=== PATIENT | female | born 1955 | race Caucasian/White ===

== ENCOUNTER 2017-04-06 12:42 | Emergency (ER) | payer BC, SELFPAY ==
[2017-04-06 14:20] VITALS: BP 132/87; PULSE 90; RESP 18; TEMP 37.2; O2SAT 100
[2017-04-06 14:43] LABS: UTC Influenza A Antigen Positive (Negative); UTC Influenza B Antigen Negative (Negative)
--- NOTE | 2017-04-06 14:47 | HMH.EDUTC ---
[facility] [place] Disposition Clinical Impression: Influenza Disposition: Home, Self-Care Condition on Discharge: Good Instructions: Influenza Additional Instructions: * Monitor Temp. Tylenol and/or Ibuprofen as needed. ER if fever is no less than 101 despite alternating Tylenol and Ibuprofen * Encourage fluids, water, Gatorade, powerade, pedialyte if infant/toddler/or child * Warm salt water gargles for throat irritation *Warm fluids *Sore throat lozenges *Sleep elevated *humidifier or vaporizer Lots of rest Increase fluids, water, Gatorade, powerade Follow up IMMEDIATELY for new or worsening of symptoms OR no noticeable improvement over the next 48-72 hours. 911 immediately for any life threatening symptoms such as chest pain or difficulty breathing Prescriptions: Dextromethorphan Polistirex [Delsym] 10 ml PO Q12RT PRN #200 [email or web address] PRN Reason: Cough Oseltamivir Phosphate [Tamiflu 75mg Capsule] 75 mg PO BID #10 capsule Referrals: Dipti Noguera APRN [Primary Care Provider] - Time of Disposition: 14:57 Medical Decision Making Vital Signs: 04/06/17 14:20 Temperature 98.9 F Temperature Source Temporal Artery Scan Pulse Rate [Right] 90 Respiratory Rate 18 Blood Pressure [Right Arm] 132/87 Blood Pressure Mean [Right Arm] 102 Blood Pressure Source [Right Arm] Automatic Cuff Blood Pressure Position [Right Arm] Sitting 02 Sat by Pulse Oximetry 100 Oxygen Delivery Method Room Air - Lab Data Lab Results 04/06/17 14:42: Influenza Type A Ag Positive A, Influenza Type B Ag Negative - Armando Inquiry Pt receiving controlled substance: No Armando was queried for this patient: No [facility] HPI - General Stated complaint: body aches Mode of Arrival: Ambulatory Source of Information: Patient Limitations: No Limitations Description of Symptoms (Recalled from Triage Doc. by RN): COUGH, CONGESTION, NAUSEA TUESDAY HEENT Symptoms (Recalled from RN notes): Yes Resp Symptoms (Recalled from RN notes): No Skin Symptoms (Recalled from RN notes): No MS Symptoms (Recalled from RN notes): No Functional Status (Recalled from RN notes): N - History of Present Illness Provider Complaint: Patient state that she has been having flu like symptoms that has continued to get worse State that her grandson was just diagnosed with flu 2 days ago - Related Data Previous Rx's Medication Instructions Recorded Dextromethorphan Polistirex 10 ml PO Q12RT PRN #200 [email or web address] 04/06/17 [Delsym] Oseltamivir Phosphate [Tamiflu 75 mg PO BID #10 cap 04/06/17 75mg Capsule] Allergies Allergy/AdvReac Type Severity Reaction Status Date / Time Sulfa (Sulfonamide Allergy Unknown Unverified 03/22/17 14:25 Antibiotics) [SULFA (SULFONAMIDE ANTIBIOTICS)] sulfamethizole Allergy Unknown Unverified 03/22/17 14:25 [SULFAMETHIZOLE] - Worker's Comp Is this a Worker's Comp case?: No H History - *Social History Alcohol Intake: never - Psychiatric History Expresses thoughts of harming self/others: None Suicide Plan Description: No Plan - Constitutional Reports chills, Reports fatigue, Reports fever(s) - ENT Reports nasal congestion - Respiratory Reports cough Physical Exam - General General appearance: alert, in no apparent distress - ENT ENT exam: Present: normal exam, normal oropharynx, mucous membranes moist, TM's normal bilaterally, normal external ear exam - Respiratory Respiratory exam: Present: normal lung sounds bilaterally. Absent: respiratory distress - Cardiovascular Cardiovascular exam: Present: regular rate, normal rhythm. Absent: JVD - Neurological Exam Neurological exam: Present: alert, oriented X3 - Psychiatric Psychiatric exam: Present: normal affect, normal mood
--- NOTE | 2017-04-06 14:53 | ED_ITS ---
[facility] [place] Disposition Clinical Impression: Influenza Disposition: Home, Self-Care Condition on Discharge: Good Instructions: Influenza Additional Instructions: * Monitor Temp. Tylenol and/or Ibuprofen as needed. ER if fever is no less than 101 despite alternating Tylenol and Ibuprofen * Encourage fluids, water, Gatorade, powerade, pedialyte if infant/toddler/or child * Warm salt water gargles for throat irritation *Warm fluids *Sore throat lozenges *Sleep elevated *humidifier or vaporizer Lots of rest Increase fluids, water, Gatorade, powerade Follow up IMMEDIATELY for new or worsening of symptoms OR no noticeable improvement over the next 48-72 hours. 911 immediately for any life threatening symptoms such as chest pain or difficulty breathing Prescriptions: Dextromethorphan Polistirex [Delsym] 10 ml PO Q12RT PRN #200 [email or web address] PRN Reason: Cough Oseltamivir Phosphate [Tamiflu 75mg Capsule] 75 mg PO BID #10 capsule Referrals: Dipti Noguera APRN [Primary Care Provider] - Time of Disposition: 14:57 Medical Decision Making Vital Signs: 04/06/17 14:20 Temperature 98.9 F Temperature Source Temporal Artery Scan Pulse Rate [Right] 90 Respiratory Rate 18 Blood Pressure [Right Arm] 132/87 Blood Pressure Mean [Right Arm] 102 Blood Pressure Source [Right Arm] Automatic Cuff Blood Pressure Position [Right Arm] Sitting 02 Sat by Pulse Oximetry 100 Oxygen Delivery Method Room Air - Lab Data Lab Results 04/06/17 14:42: Influenza Type A Ag Positive A, Influenza Type B Ag Negative - Armando Inquiry Pt receiving controlled substance: No Armando was queried for this patient: No [facility] [place] HPI - General Stated complaint: body aches Mode of Arrival: Ambulatory Source of Information: Patient Limitations: No Limitations Description of Symptoms (Recalled from Triage Doc. by RN): COUGH, CONGESTION, NAUSEA TUESDAY HEENT Symptoms (Recalled from RN notes): Yes Resp Symptoms (Recalled from RN notes): No Skin Symptoms (Recalled from RN notes): No MS Symptoms (Recalled from RN notes): No Functional Status (Recalled from RN notes): N - History of Present Illness Provider Complaint: Patient state that she has been having flu like symptoms that has continued to get worse State that her grandson was just diagnosed with flu 2 days ago - Related Data Previous Rx's Medication Instructions Recorded Dextromethorphan Polistirex 10 ml PO Q12RT PRN #200 [email or web address] 04/06/17 [Delsym] Oseltamivir Phosphate [Tamiflu 75 mg PO BID #10 cap 04/06/17 75mg Capsule] Allergies Allergy/AdvReac Type Severity Reaction Status Date / Time Sulfa (Sulfonamide Allergy Unknown Unverified 03/22/17 14:25 Antibiotics) [SULFA (SULFONAMIDE ANTIBIOTICS)] sulfamethizole Allergy Unknown Unverified 03/22/17 14:25 [SULFAMETHIZOLE] - Worker's Comp Is this a Worker's Comp case?: No H History - *Social History Alcohol Intake: never - Psychiatric History Expresses thoughts of harming self/others: None Suicide Plan Description: No Plan - Constitutional Reports chills, Reports fatigue, Reports fever(s) - ENT Reports nasal congestion - Respiratory Reports cough Physical Exam - General General appearance: a
== END 2017-04-06 15:05 | disposition home or self-care (01) ==
PROVIDERS: Emergency Provider Nurse Practitioner; Family Provider Internal Medicine Adolescent Medicine; PCP Nurse Practitioner Family
DX: J10.1 Influenza due to other identified influenza virus with other respiratory manifestations (principal)
CPT/HCPCS: 87276; 87804; 99201

== ENCOUNTER → 2018-01-13 09:30 | Outpatient (CLI) | payer BC, SELFPAY ==
[2018-01-13 09:56] LABS: Basophils % 0.2 % (0.1-2.0); Eosinophils # 0.1 K/mm3 (0.0-0.4); Eosinophils % 1.6 % (0.1-12.0); Hematocrit 41.7 % (37.0-47.0); Hemoglobin 13.6 g/dL (12.2-16.2); Lymphocytes # 1.6 K/mm3 (0.7-4.5); Lymphocytes % 27.6 K/mm3 (10-50); Mean Corpuscular HGB Conc 32.6 g/dL (31.8-35.4); Mean Corpuscular Hemoglobin 30.3 pg (27.0-31.2); Mean Corpuscular Volume 92.9 fl (81-99); Mean Platelet Volume 7.3 fl (7.4-10.4); Monocytes # 0.3 K/mm3 (0.1-1.0); Monocytes % 5.3 % (1.7-9.3); Neutrophils # 3.9 K/mm3 (1.8-7.8); Neutrophils % 65.2 % (37.0-80.0); Platelet Count 293 K/mm3 (142-424); Red Blood Count 4.49 M/mm3 (4.20-5.40); Red Cell Distribution Width 13.6 % (11.5-17.5); White Blood Count 5.9 K/mm3 (4.8-10.8)
[2018-01-13 11:20] LABS: Alanine Aminotransferase 25 U/L (12-78); Albumin Level 3.4 gm/dL (3.4-5.0); Albumin/Globulin Ratio 1.1 (1.1-1.8); Alkaline Phosphatase 72 U/L (46-116); Aspartate Amino Transferase 14 U/L (15-37); Bilirubin,Total 0.5 mg/dL (0.2-1.0); Blood Urea Nitrogen 15 mg/dL (7-18); Calcium 8.7 mg/dL (8.5-10.1); Carbon Dioxide 31 mmol/L (21.0-32.0); Chloride 105 mmol/L (98-107); Chol/HDL Ratio 4.3 (1-3.5); Cholesterol 202 mg/dL (140-200); Creatinine,Serum 0.79 mg/dL (0.55-1.02); Estimated Glomerular Filt Rate 73 ml/min (>60); Free Thyroxine Index 3.3 ug/dL (5.93-13.13); GFR (African American) 89 ML/MIN (>60); Globulin 3.2 gm/dl (1.3-3.2); Glucose 96 mg/dL (74-106); HDL Cholesterol 47 mg/dL (29-89); LDL Cholesterol 135 mg/dL (0-130); Sodium 141 mmol/L (136-145); T4 (Thyroxine) 8.9 ug/dl (4.7-13.3); Total Protein,Serum 6.6 gm/dL (6.4-8.2); Triglycerides 98 mg/dL (30-200); Triiodothryronine (T3) Uptake 37 % (31-39); VLDL Cholesterol 20 mg/dL (0-40)
[2018-01-16 06:15] LABS: Vitamin B12 564 pg/mL (232-1245); Vitamin D 25 Hydroxy 31.4 ng/mL (30.0-100.0)
== END ==
PROVIDERS: PCP Nurse Practitioner Family; Visit Provider Nurse Practitioner Family
DX: I10 Essential (primary) hypertension (principal); E78.5 Hyperlipidemia, unspecified; E55.9 Vitamin D deficiency, unspecified; R53.83 Other fatigue
CPT/HCPCS: 36415; 80053; 80061; 82607; 82652; 84436; 84443; 84479; 85025

== ENCOUNTER → 2018-01-20 09:14 | Outpatient (CLI) | payer BC, SELFPAY ==
--- NOTE | 2018-01-20 09:16 | MM_ITS ---
MM Dig screening mamm BI w/CAD ORDERING PHYSICIAN : Dipti Noguera PATIENT AGE: 62 years GENDER: Female COMPARISON: March 2012 digital mammogram along with November 2008 film screen mammogram INDICATION: ITS.REASON: SCREENING no hormones. No new complaints.. Family history: maternal aunt with breast cancer TECHNIQUE: Standard CC and MLO images were obtained. R2 CAD reviewed. Additional nipple profile cc view bilateral . Added MLO inframammary fold FINDINGS: Low-density breast with moderate generalized fatty replacement. RIGHT BREAST:Stable right breast with no new areas concern. LEFT BREAST: . No new areas of significant concern Small nodular density at the deep lateral left breast is most likely is a tiny intramammary node up to 3 mm size. This is this nodular density present since 2008 but has mildly accentuated on today's slightly higher contrast mammogram study, thus I believe due to technique. When measured no significant change in size since prior study . Would encourage follow-up in one year to confirm stability here and elsewhere. IMPRESSION: ... No new areas of significant concern. Bilateral follow-up in one year recommended and should be encouraged BI-RADS Category: 2 Benign Finding(s) RECOMMENDED FOLLOW-UP: 1YR 1 YEAR FOLLOW-UP (A letter has been sent to the patient regarding results of the study.)
== END ==
PROVIDERS: Family Provider Internal Medicine Adolescent Medicine; PCP Nurse Practitioner Family; Visit Provider Nurse Practitioner Family
DX: Z12.31 Encounter for screening mammogram for malignant neoplasm of breast (principal)
CPT/HCPCS: 77067

== ENCOUNTER → 2018-08-24 15:01 | Outpatient (CLI) | payer OTHER, SELFPAY ==
--- NOTE | 2018-08-24 15:06 | US_ITS ---
US thyroid HISTORY: Follow-up thyroid nodules ITS.REASON: GOITER ORDERING PHYSICIAN: Dipti Noguera APRN PATIENT AGE: 62 years Comparison: None FINDINGS: The right lobe is 4.7 x 1 x 1.2 cm. Multiple nodules are present. Nodule A upper pole: Mixed cystic and solid at 5 mm unchanged. Nodule B: Isoechoic solid-appearing nodule at 1 cm unchanged. Nodule C: Isoechoic nodule with a small area of increased echogenicity centrally. This nodule measures 4 mm not demonstrated on the previous exam Nodule D: Isoechoic nodule at 8 x 4 mm near the isthmus unchanged Nodule E: Cystic nodule at 8 mm in the mid polar region unchanged Nodule F: 6 X 4 mm isoechoic nodule with a polar region unchanged Nodule T: 7 x 5 mm isoechoic nodule in the mid polar region unchanged The left lobe is 4.6 x 1.5 x 2 cm. Nodule A: 16 x 10 mm complex cyst upper pole unchanged Nodule B: 8 x 8 mm cystic lesion mid polar region unchanged. There is a central area of increased echogenicity similar to the previous exam Nodule C: 15 x 7 mm isoechoic nodule lower pole unchanged Nodule D: 9 mm cyst lower pole unchanged IMPRESSION: No change multinodular goiter
== END ==
PROVIDERS: PCP Nurse Practitioner Family; Visit Provider Nurse Practitioner Family
DX: E04.2 Nontoxic multinodular goiter (principal)
CPT/HCPCS: 76536

== ENCOUNTER 2019-04-19 23:59 | Observation (INO) ==
--- NOTE | 2019-04-20 00:22 | Emergency Department Note ---
ED Disposition Clinical Impression: Mandibular abscess, Severe sepsis with acute organ dysfunction, LEANDRA (acute kidney injury), Hypokalemia Disposition: Admitted As Inpatient Condition on Discharge: Good Instructions: DI for Diarrhea and Traveler's Diarrhea -- Adult, DI for Diarrhea and Traveler's Diarrhea -- Child, DI for Nausea -- Adult, DI for Nausea -- Child Referrals: Dipti Noguera APRN [Primary Care Provider] - - Critical Care Critical Care Time: No Attestation: On 04/19/19, the high probability of a clinically significant, sudden or life threatening deterioration of the following system(s) required my full and direct attention, intervention and personal management. The time I documented below is in addition to time spent performing reported procedures but includes the following listed in this critical care notation. Medical Decision Making - Medical Records Medical records reviewed: Yes: I reviewed the patient's medical records. - Armando Inquiry Pt receiving controlled substance: No Vital Signs: 04/20/19 00:07 Temperature 98.0 F Temperature Source Oral Pulse Rate [Right Brachial] 89 Respiratory Rate 19 Blood Pressure [Right Arm] 139/88 Blood Pressure Mean [Right Arm] 105 Blood Pressure Source [Right Arm] Automatic Cuff Blood Pressure Position [Right Arm] Sitting 02 Sat by Pulse Oximetry 100 Oxygen Delivery Method Room Air - Lab Data Lab results reviewed: Yes: I reviewed the patient's lab results. Lab Results 04/20/19 00:15: WBC 17.2 H, RBC 5.25, Hgb 15.9, Hct 48.0 H, MCV 91.5, MCH 30.4, MCHC 33.2, RDW 13.4, Plt Count 349, MPV 8.1, Neut % (Auto) 90.2 H, Lymph % (Auto) 5.6 L, [place] % (Auto) 4.0, Eos % (Auto) 0.1, Baso % (Auto) 0.1, Neut # (Auto) 15.5 H, Lymph # (Auto) 1.0, [place] # (Auto) 0.7, Eos # (Auto) 0.0, Baso # (Auto) 0.0, Total Counted 100, Neutrophils % (Manual) 91 H, Lymphocytes % (Manual) 8 L, Monocytes % (Manual) 1 L, Platelet Estimate Normal, RBC Morphology Not Reportable, Stomatocytes 1+ 04/20/19 00:15: Sodium 142, Potassium 2.9 L*, Chloride 97 L, Carbon Dioxide 28, Anion Gap 19.9 H, BUN 38 H, Creatinine 1.93 H, Estimated Creat Clear 34, Estimated GFR 26 L, Est GFR ( Amer) 32 L, Glucose 196 H, Calcium 9.9, Total Bilirubin 0.6, AST 6 L, ALT 13, Alkaline Phosphatase 83, Troponin I < 0.02, Total Protein 8.5 H D, Albumin 4.3, Globulin 4.2 H, Albumin/Globulin Ratio 1.0 L, Amylase 48, Lipase 180 04/20/19 00:15: Lactate 4.1 H 04/20/19 00:15: Hemoglobin A1c 5.7 Result diagrams: 04/20/19 00:15 04/20/19 00:15 Orders (Tests/Meds): ED MEDICATIONS Generic Name Dose Route Start Last Admin Trade Name Freq PRN Reason Stop Dose Admin Sodium Chloride 2,250 mls @ 1,125 mls/hr 04/20/19 00:54 04/20/19 00:45 Sod Chlor 0.9% 1000ml Bag 30 ml/kg infuse over 2 hr (2250 ml) 04/20/19 02:53 1,125 mls/hr IV Administration .Q2H ONE Clindamycin Phosphate 900 mg/ 106 mls @ 100 mls/hr 04/20/19 01:00 Sodium Chloride IV 05/04/19 00:59 Q8H MACK Protocol Discontinued Medications Generic Name Dose Route Start Last Admin Trade Name Freq PRN Reason Stop Dose Admin Ceftriaxone Sodium 1 gm/ 50 mls @ 100 mls/hr 04/20/19 00:52 04/20/19 00:59 Sodium Chloride IV 04/20/19 01:21 100 mls/hr ONCE ONE Administration Protocol Clindamycin Phosphate 600 mg/ 104 mls @ 100 mls/hr 04/20/19 00:52 Sodium Chloride IV 04/20/19 01:54 ONCE ONE Protocol ORDERS Category Date Time Status CT facial bones wo con Stat Cat Scan 04/20/19 00:15 Taken XR chest 2V Stat Exams 04/20/19 00:34 Taken Troponin I Q3H Lab 04/20/19 03:30 Ordered Troponin I Q3H Lab 04/20/19 06:30 Ordered Urinalysis and Microscopic Stat Lab 04/20/19 00:15 Ordered Blood Culture Stat Micro 04/20/19 00:19 Received - Radiology Data #1 Image(s): Chest Image Reviewed: Yes I reviewed the patient's radiology image Preliminary Findings: Normal/NAD - CT Data CT Scan: Other (facial) Time Received: 01:[address] Reviewed: Yes: I have viewed the radiologist's interpretation Preliminary Findings: Abnormal (see report ) - ECG Data Tracing #1 Normal Sinus Rhythm: Yes Ischemic changes: non-specific ST-T wave changes, other (st depressions ) - Physician Consults Physician Consulted: kapil Reason -: Admission Nausea/Vomiting/Diarrhea HPI - General Chief complaint: Nausea/Vomiting/Diarrhea Stated complaint: Vomiting since Wed Time Seen by Provider: 04/20/19 00:21 Mode of Arrival: Family Vehicle Source of Information: Patient, Relative, Medical Record Limitations: No Limitations Description of Symptoms (Recalled from ER Triage Doc. by RN): low jaw surgery by dr mar in [place] and had an abscess removed; states she was placed on atb's and due to follow up next tue - History of Present Illness HPI Narrative: recent op dental surg and since has had dec po intake and vomiting today unable to tolerate fluids and meds - no fever reported MD complaint: nausea, vomiting Onset (ago): day(s) Associated Abdominal Pain: No Severity: moderate Context: recent surgery/procedure Associated symptoms: loss of appetite - Related Data Home Medications Medication Instructions Recorded Confirmed lisinopril 10 PO 90 Days #90 11/25/17 mg-hydrochlorothiazide 12.5 mg tablet omeprazole 40 mg capsule,delayed mg PO 30 Days #30 11/25/17 release Previous Rx's Medication Instructions Recorded Dextromethorphan Polistirex 10 ml PO Q12RT PRN #200 [email or web address] 04/06/17 [Delsym] loratadine 10 mg tablet 10 mg PO DAILY #30 tab 11/25/17 Allergies Allergy/AdvReac Type Severity Reaction Status Date / Time Sulfa (Sulfonamide Allergy Unknown Verified 11/25/17 13:16 Antibiotics) [SULFA (SULFONAMIDE ANTIBIOTICS)] sulfamethizole Allergy Unknown Verified 11/25/17 13:16 [SULFAMETHIZOLE] [facility] History - Hepatitis A Screen Drug use history?: No High risk sexual behaviors?: No History of sexually transmitted infection?: No Currently employed?: No Childcare worker?: No Do you have indoor plumbing?: Yes Do you have electricity?: Yes Attestation statement:: This patient has been screened for Hepatitis A risk factors. I have reviewed the patient's past medical history: Yes Medical History: Reports:: Gastroesophageal Reflux Disease(GERD), Hypertension Other Surgeries: Yes: Cholecystectomy, Hysterectomy-Total Amputation: No Fractures: No - Social History Smoking Status: Never smoker Alcohol Intake: never Substance Use Type: denies use ROS Obtained: Yes All systems reviewed & no additional complaints - Constitutional Constitutional: Reports as per HPI, Denies fever(s), Reports weakness - Eyes Eyes: Denies change in vision - ENT Ears, Nose, Mouth, and Throat: Reports as per HPI, Denies epistaxis, Reports facial pain, Denies headache(s), Denies sore throat - Cardiovascular Cardiovascular: Denies chest pain - Respiratory Respiratory: No cough - Gastrointestinal Gastrointestingal: Denies: dysphagia - Genitourinary Female Genitourinary: Denies hematuria - Musculoskeletal Musculoskeletal: Denies joint pain, Denies joint swelling - Integumentary/Breasts Skin/Breast: Denies rash - Neurologic Neurologic: Denies confusion, Denies focal weakness Physical Exam - General General appearance: alert - Head Head exam: normocephalic - Eye Eye exam: Present: PERRL, EOMI, other (ecchymosis and lower jaw swelling ) - ENT ENT exam: Present: mucous membranes dry, other (no abscess seen ) - Neck Neck exam: Present: trachea midline - Respiratory Respiratory exam: Present: normal lung sounds bilaterally. Absent: respiratory distress - Cardiovascular Cardiovascular exam: Present: regular rate, systolic murmur - Abdominal Exam Abdominal exam: Present: soft - Extremities Exam Extremities exam: Present: full ROM - Neurological Exam Neurological exam: Present: alert, oriented X3, CN II-XII intact - Psychiatric Psychiatric exam: Present: normal affect - Skin Skin exam: Absent: rash
[2019-04-20 00:27] LABS: Basophils % 0.1 % (0.1-2.0); Eosinophils % 0.1 % (0.1-12.0); Hemoglobin 15.9 g/dL (12.2-16.2); Lymphocytes % 5.6 % (10-50); Mean Corpuscular HGB Conc 33.2 g/dL (31.8-35.4); Mean Corpuscular Volume 91.5 fl (81-99); Mean Platelet Volume 8.1 fl (7.4-10.4); Monocytes # 0.7 K/mm3 (0.1-1.0); Neutrophils # 15.5 K/mm3 (1.8-7.8); Neutrophils % 90.2 % (37.0-80.0); Platelet Count 349 K/mm3 (142-424); Red Blood Count 5.25 M/mm3 (4.20-5.40); Red Cell Distribution Width 13.4 % (11.5-17.5); White Blood Count 17.2 K/mm3 (4.8-10.8)
[2019-04-20 00:39] LABS: Alanine Aminotransferase 13 U/L (12-78); Albumin Level 4.3 gm/dL (3.4-5.0); Alkaline Phosphatase 83 U/L (46-116); Amylase 48 U/L (25-115); Anion Gap 19.9 mEq/L (5-15); Aspartate Amino Transferase 6 U/L (15-37); Bilirubin,Total 0.6 mg/dL (0.2-1.0); Blood Urea Nitrogen 38 mg/dL (7-18); Calcium 9.9 mg/dL (8.5-10.1); Carbon Dioxide 28 mmol/L (21.0-32.0); Chloride 97 mmol/L (98-107); Globulin 4.2 gm/dl (1.3-3.2); Glucose 196 mg/dL (74-106); Sodium 142 mmol/L (136-145); Total Protein,Serum 8.5 gm/dL (6.4-8.2)
[2019-04-20 00:59] LABS: Lymphocytes % 8 % (10-50); Monocytes % 1 % (2-9); Neutrophils % 91 % (42-76); Stomatocytes 1+; Total Cells Counted 100
[2019-04-20 05:32] LABS: Basophils % 0.1 % (0.1-2.0); Eosinophils % 0.1 % (0.1-12.0); Hematocrit 42.4 % (37.0-47.0); Lymphocytes # 0.9 K/mm3 (0.7-4.5); Lymphocytes % 6.4 % (10-50); Mean Corpuscular HGB Conc 31.9 g/dL (31.8-35.4); Mean Corpuscular Volume 94.6 fl (81-99); Monocytes # 0.5 K/mm3 (0.1-1.0); Monocytes % 3.2 % (1.7-9.3); Neutrophils # 13.3 K/mm3 (1.8-7.8); Neutrophils % 90.3 % (37.0-80.0); Platelet Count 301 K/mm3 (142-424); Red Blood Count 4.48 M/mm3 (4.20-5.40); Red Cell Distribution Width 13.4 % (11.5-17.5); White Blood Count 14.7 K/mm3 (4.8-10.8)
[2019-04-20 05:38] LABS: Hemoglobin 13.7 g/dL (12.2-16.2)
[2019-04-20 05:39] LABS: Anion Gap 13.7 mEq/L (5-15)
[2019-04-20 06:02] LABS: Calcium 8.3 mg/dL (8.5-10.1)
--- NOTE | 2019-04-20 07:20 | Pharmacy Consult Notes ---
[facility] Pharmacy VTE Monitoring - Patient Demographics Admission date: 04/20/19 Report Date: 04/20/19 Time: 07:20 Allergies/Adverse Reactions: Patient Allergies Sulfa (Sulfonamide Antibiotics) [SULFA (SULFONAMIDE ANTIBIOTICS)] Allergy (Unknown, Verified 11/25/17 13:16) sulfamethizole [SULFAMETHIZOLE] Allergy (Unknown, Verified 11/25/17 13:16) Height: 1.57 m Weight: 64.183 kg Patient Problems: Current Active Problems Mandibular abscess (Acute) Severe sepsis with acute organ dysfunction (Acute) LEANDRA (acute kidney injury) (Acute) Hypokalemia (Acute) - VTE Risk Labs: VTE Related Lab Results Hgb 13.7 g/dL (12.2-16.2) D 04/20/19 05:20 Hct 42.4 % (37.0-47.0) 04/20/19 05:20 Plt Count 301 K/mm3 (142-424) 04/20/19 05:20 BUN 36 mg/dL (7-18) H 04/20/19 05:20 Creatinine 1.30 mg/dL (0.55-1.02) H D 04/20/19 05:20 Estimated Creat Clear 44 mL/min (50-200) 04/20/19 05:20 Was VTE Risk Assessment Performed: Yes VTE Score: 1 VTE Risk Level: Very Low Risk - Prophylaxis VTE Prophylaxis Ordered?: Yes Types of VTE Prophylaxis: TEDS Knee High Location of Applied Device: Bilateral Lower Extremeties
--- NOTE | 2019-04-20 08:09 | Sepsis Event Note ---
[facility] Tissue Perfusion Eval Sepsis Re-Evaluation Performed: Yes Date Performed: 04/20/19 Time Performed: 05:45
--- NOTE | 2019-04-20 09:00 | Electrocardiograph Report ---
APPROVED REPORT Exam: Resting ECG HR:97 bpm ECG Measurements Heart Rate 97 AXES OK 164 P 50 QRSd 80 QRS 9 QT 368 T88 QTc 467 <Conclusion> Normal sinus rhythm Nonspecific ST and T wave abnormality Abnormal ECG Electronically signed by : Shahram Tapia, 04/20/2019 09:00:13
--- NOTE | 2019-04-20 14:05 | History & Physical Report ---
*Admission Date: 04/20/19 *Chief complaint: nausea and vomiting *History of present illness: 63-year-old female who had teeth extractions performed by an oral maxillofacial surgeon earlier this week on Tuesday. She proceeded to go home after surgery, and developed nausea and vomiting the afternoon after her procedure. She was prescribed antibiotics to start due to concern for abscess versus cyst in her mandible and has been unable to tolerate them for the past 3 days. She is had very poor p.o. intake and develop signs of dehydration. Her intractable nausea and vomiting and abdominal pain are what caused her to come to the ER. Upon arrival she was found to be septic with a heart rate above 90, elevated white count, and concern for infection in her jaw. Started on broad- spectrum antibiotics and cultures were obtained. She is continued to have intractable nausea overnight and is responding poorly to Zofran. Additionally found to be hypokalemic and have acute kidney injury, suspected due to dehydration and vomiting. Started on IV fluids with some improvement this morning. On interview this morning she reports still having diffuse belly pain, vomiting being her main symptom. Complains of pain in her mandible. Has not had antibiotics since starting to take them on Tuesday and being intolerant with the emesis that afternoon. Denies fever, confusion, syncope, chest pain. No shortness of breath either. Denies blood in vomit or stool [facility] History I have reviewed the patient's past medical history: Yes Medical History: Reports:: Anxiety, Gastroesophageal Reflux Disease(GERD), Hyperlipidemia, Hypertension *Have you ever received a pneumonia vaccine?: Yes *Have you received a flu vaccine this season?: No Other Surgeries: Yes: Cardiac Catheterization, Cholecystectomy, Hysterectomy- Total Amputation: No Fractures: No - *Social History Educational Level: Completed High School Smoking Status: Never smoker Alcohol Intake: never Substance Use Type: denies use *Occupational Status:: retired Household Members: family *Travel in the last 8 weeks: None Family Hx:: Cancer, Diabetes Review of Systems - Review of Systems Review of systems:: pertinent systems reviewed and negative unless documented below (14 point ROS performed, pertinent positives/negatives as listed in HPI) - *Neurologic Reports weakness, Denies confusion, Denies localized weakness, Denies headache(s) Meds Home Medications Medication Instructions Recorded Confirmed Type lisinopril 10 1 tab PO DAILY 90 Days #90 11/25/17 04/20/19 History mg-hydrochlorothiazide 12.5 mg tablet omeprazole 40 mg capsule,delayed 40 mg PO DAILY 30 Days #30 11/25/17 04/20/19 History release ALPRAZolam [Alprazolam Xr 0.5mg 0.5 mg PO TIDP PRN 04/20/19 04/20/19 History Tab] Amoxicillin [Amoxicillin 500mg 500 mg PO TID 04/20/19 04/20/19 History Cap] Dicyclomine HCl 20 mg PO ACHS 04/20/19 04/20/19 History Escitalopram Oxalate 20 mg PO HS 04/20/19 04/20/19 History Multivitamin [Multi-Day Vitamins] 1 each PO DAILY 04/20/19 04/20/19 History Oxybutynin Chloride [Oxybutynin 5 mg PO DAILY 04/20/19 04/20/19 History Chloride ER] ondansetron HCL [Ondansetron HCl] 4 mg PO Q8HP PRN 04/20/19 04/20/19 History Allergies Allergy/AdvReac Type Severity Reaction Status Date / Time Sulfa (Sulfonamide Allergy Unknown Verified 11/25/17 13:16 Antibiotics) [SULFA (SULFONAMIDE ANTIBIOTICS)] sulfamethizole Allergy Unknown Verified 11/25/17 13:16 [SULFAMETHIZOLE] Exam Vital signs and Labs for Last 24 Hours: Temp Pulse Resp BP Pulse Ox 97.9 F 91 H 18 153/93 H 96 04/20/19 12:00 04/20/19 12:00 04/20/19 12:00 04/20/19 12:00 04/20/19 12:00 Laboratory Results - last 24 hr 04/20/19 00:15: WBC 17.2 H, RBC 5.25, Hgb 15.9, Hct 48.0 H, MCV 91.5, MCH 30.4, MCHC 33.2, RDW 13.4, Plt Count 349, MPV 8.1, Neut % (Auto) 90.2 H, Lymph % (Auto) 5.6 L, [place] % (Auto) 4.0, Eos % (Auto) 0.1, Baso % (Auto) 0.1, Neut # (Auto) 15.5 H, Lymph # (Auto) 1.0, [place] # (Auto) 0.7, Eos # (Auto) 0.0, Baso # (Auto) 0.0, Total Counted 100, Neutrophils % (Manual) 91 H, Lymphocytes % (Manual) 8 L, Monocytes % (Manual) 1 L, Platelet Estimate Normal, RBC Morphology Not Reportable, Stomatocytes 1+ 04/20/19 00:15: Sodium 142, Potassium 2.9 L*, Chloride 97 L, Carbon Dioxide 28, Anion Gap 19.9 H, BUN 38 H, Creatinine 1.93 H, Estimated Creat Clear 34, Estimated GFR 26 L, Est GFR ( Amer) 32 L, Glucose 196 H, Calcium 9.9, Total Bilirubin 0.6, AST 6 L, ALT 13, Alkaline Phosphatase 83, Troponin I < 0.02, Total Protein 8.5 H D, Albumin 4.3, Globulin 4.2 H, Albumin/Globulin Ratio 1.0 L, Amylase 48, Lipase 180 04/20/19 00:15: Lactate 4.1 H 04/20/19 00:15: Hemoglobin A1c 5.7 04/20/19 02:45: Troponin I < 0.02 04/20/19 05:20: Troponin I < 0.02 04/20/19 05:20: WBC 14.7 H, RBC 4.48, Hgb 13.7 D, Hct 42.4, MCV 94.6, MCH 30.2, MCHC 31.9, RDW 13.4, Plt Count 301, MPV 8.0, Neut % (Auto) 90.3 H, Lymph % (Auto) 6.4 L, [place] % (Auto) 3.2, Eos % (Auto) 0.1, Baso % (Auto) 0.1, Neut # (Auto) 13.3 H, Lymph # (Auto) 0.9, [place] # (Auto) 0.5, Eos # (Auto) 0.0, Baso # (Auto) 0.0 04/20/19 05:20: Sodium 145, Potassium 2.7 L*, Chloride 105, Carbon Dioxide 29, Anion Gap 13.7, BUN 36 H, Creatinine 1.30 H D, Estimated Creat Clear 44, Estimated GFR 41 L, Est GFR ( Amer) 50 L D, Glucose 142 H D, Calcium 8.3 L D 04/20/19 05:20: Lactate 2.3 H 04/20/19 08:05: Lactate 1.8 I & O for Last 24 hours: Intake & Output 04/17/19 04/18/19 04/19/19 04/20/19 23:59 23:59 23:59 23:59 Intake Total 3470 / 3470 Output Total 550 / 550 Balance 2920 / 2920 Weight 64.183 kg - *Routine HEENT Exam Head: Present: normocephalic Eye: Present: EOMI, PERRL ENT: Present: mucous membranes moist Comments: Sutures along gumline of mandible, no apparent abscess or purulent drainage. Bruising at corners of bottom lip - *Routine Neck Exam Present: supple. Absent: lymphadenopathy - *Routine Respiratory Exam Present: CTA bilaterally - *Routine Cardiovascular Exam Present: RRR - *Routine Abdominal Exam Present: soft, tenderness Comments: Hypoactive bowel sounds, diffusely tender with guarding. No rebound. No CVA tenderness - *Routine Extremities Exam Absent: cyanosis, clubbing, edema - *Routine Skin Exam Present: warm. Absent: rash - *Routine Neurological Exam Present: alert, oriented X3 Assessment and Plan (1) Abdominal pain Current visit: Yes Status: Acute Category: Medical Code(s): R10.9 - Unspecified abdominal pain (2) LEANDRA (acute kidney injury) Current visit: Yes Status: Acute Category: Medical Code(s): N17.9 - Acute kidney failure, unspecified (3) Hypokalemia Current visit: Yes Status: Acute Category: Medical Code(s): E87.6 - Hypokalemia (4) Mandibular abscess Current visit: Yes Status: Acute Category: Medical Code(s): M27.2 - Inflammatory conditions of jaws (5) Severe sepsis with acute organ dysfunction Current visit: Yes Status: Acute Category: Medical Code(s): A41.9 - Sepsis, unspecified organism; R65.20 - Severe sepsis without septic shock (6) Emesis, persistent Current visit: Yes Status: Acute Category: Medical Code(s): R11.15 - Cyclical vomiting syndrome unrelated to migraine - Assessment and plan all Dx Assessment and Plan for all problems:: 63-year-old female status post extraction of teeth on Tuesday of this week with subsequent development of nausea, vomiting, intolerance of p.o. intake or medications. Admitted due to sepsis, inability to tolerate oral intake, intractable nausea, and acute kidney injury. Aggressive fluid resuscitation, empiric antibiotics and cultures obtained. Electrolyte repletion as needed. Will try to control nausea first with Zofran followed by Phenergan followed by Compazine depending on response. Given abdominal discomfort which may be secondary to nausea and vomiting but also intractable vomiting, will obtain CT abdomen pelvis. Further management pending results of imaging. Continue with IV rehydration and advance diet as tolerated. Patient will meet criteria for discharge once no longer having emesis, able to tolerate p.o. fluids, and achieving hemodynamic stability. Continues to require inpatient management at this time.
[2019-04-20 19:10] LABS: Calcium 8.6 mg/dL (8.5-10.1)
[2019-04-21 06:18] LABS: Basophils % 0.1 % (0.1-2.0); Eosinophils % 0.1 % (0.1-12.0); Hematocrit 36.1 % (37.0-47.0); Hemoglobin 11.7 g/dL (12.2-16.2); Lymphocytes # 1.3 K/mm3 (0.7-4.5); Mean Corpuscular HGB Conc 32.4 g/dL (31.8-35.4); Mean Platelet Volume 8.5 fl (7.4-10.4); Monocytes # 0.7 K/mm3 (0.1-1.0); Monocytes % 5.4 % (1.7-9.3); Neutrophils # 10.7 K/mm3 (1.8-7.8); Neutrophils % 84.5 % (37.0-80.0); Platelet Count 246 K/mm3 (142-424); Red Cell Distribution Width 13.7 % (11.5-17.5); White Blood Count 12.7 K/mm3 (4.8-10.8)
[2019-04-21 06:56] LABS: Albumin Level 2.8 gm/dL (3.4-5.0); Albumin/Globulin Ratio 1.1 (1.1-1.8); Anion Gap 12.3 mEq/L (5-15); Bilirubin,Total 0.6 mg/dL (0.2-1.0); Calcium 8.1 mg/dL (8.5-10.1); Globulin 2.5 gm/dl (1.3-3.2); Total Protein,Serum 5.3 gm/dL (6.4-8.2)
--- NOTE | 2019-04-21 08:38 | Consult Report ---
*Admission Date: 04/20/19 *Reason for consult:: Abdominal pain, vomiting, gastric distention *History of present illness: Patient is a very pleasant 63-year-old female whom I am asked to see by Dr. Estrada. She had teeth extractions performed by an oral maxillofacial surgeon earlier this week on Tuesday. She proceeded to go home after surgery, and developed nausea and vomiting the afternoon after her procedure. She is had very poor p.o. intake and develop signs of dehydration. Her intractable nausea and vomiting and abdominal pain are what caused her to come to the ER. Evaluation in the emergency dept revealed concerns for possible sepsis and dehydration. She continued have intractable nausea overnight after admission. Yesterday morning after admission she reported having diffuse belly pain, vomiting being her main symptom. CT abdomen was obtained with finding of severe gastric distension, and exceptionally large hiatal hernia with bowel appreciated through diaphragmatic defect into the chest cavity. Surgery was contacted regarding recommendations and patient had a nasogastric tube placed. Relatively quickly she had approximately 3 L of thin fluid suctioned from her gastric lumen with significant symptomatic improvement. Imaging from 2016 that showed presence of diaphragmatic hernia and large hiatal hernia with portion of colon cephalad to diaphragm at that time. Appears that she has a longstanding extremely large hiatal hernia with herniation of colon into thoracic cavity. Review of Systems - Review of Systems Review of systems:: pertinent systems reviewed and negative unless documented below - *Neurologic Reports weakness, Denies confusion, Denies localized weakness, Denies headache(s) [facility] History Medical History: Reports:: Anxiety, Gastroesophageal Reflux Disease(GERD), Hyperlipidemia, Hypertension *Have you ever received a pneumonia vaccine?: Yes *Have you received a flu vaccine this season?: No Other Surgeries: Yes: Cardiac Catheterization, Cholecystectomy, Hysterectomy- Total Amputation: No Fractures: No - *Social History Educational Level: Completed High School Smoking Status: Never smoker Alcohol Intake: never Substance Use Type: denies use *Occupational Status:: retired Household Members: family *Travel in the last 8 weeks: None - Psychiatric History Pschychiatric History:: Reports:: Anxiety Family Hx:: Cancer, Diabetes Meds Home Medications Medication Instructions Recorded Confirmed Type lisinopril 10 1 tab PO DAILY 90 Days #90 11/25/17 04/20/19 History mg-hydrochlorothiazide 12.5 mg tablet omeprazole 40 mg capsule,delayed 40 mg PO DAILY 30 Days #30 11/25/17 04/20/19 History release ALPRAZolam [Alprazolam Xr 0.5mg 0.5 mg PO TIDP PRN 04/20/19 04/20/19 History Tab] Amoxicillin [Amoxicillin 500mg 500 mg PO TID 04/20/19 04/20/19 History Cap] Dicyclomine HCl 20 mg PO ACHS 04/20/19 04/20/19 History Escitalopram Oxalate 20 mg PO HS 04/20/19 04/20/19 History Multivitamin [Multi-Day Vitamins] 1 each PO DAILY 04/20/19 04/20/19 History Oxybutynin Chloride [Oxybutynin 5 mg PO DAILY 04/20/19 04/20/19 History Chloride ER] ondansetron HCL [Ondansetron HCl] 4 mg PO Q8HP PRN 04/20/19 04/20/19 History Allergies Allergy/AdvReac Type Severity Reaction Status Date / Time Sulfa (Sulfonamide Allergy Unknown Verified 11/25/17 13:16 Antibiotics) [SULFA (SULFONAMIDE ANTIBIOTICS)] sulfamethizole Allergy Unknown Verified 11/25/17 13:16 [SULFAMETHIZOLE] Exam Vital signs and Labs for Last 24 Hours: Temp Pulse Resp BP Pulse Ox 98.8 F 79 18 128/85 95 04/21/19 07:53 04/21/19 07:53 04/21/19 07:53 04/21/19 07:53 04/21/19 07:53 Laboratory Results - last 24 hr 04/20/19 18:55: Sodium 144, Potassium 4.0 D, Chloride 106, Carbon Dioxide 29, Anion Gap 13.0, BUN 29 H, Creatinine 0.82 D, Estimated Creat Clear 57, Estimated GFR 70, Est GFR ( Amer) 85 D, Glucose 112 H D, Calcium 8.6, Magnesium 2.3 H 04/21/19 05:50: WBC 12.7 H, RBC 3.80 L, Hgb 11.7 L, Hct 36.1 L, MCV 95.0, MCH 30.8, MCHC 32.4, RDW 13.7, Plt Count 246, MPV 8.5, Neut % (Auto) 84.5 H, Lymph % (Auto) 10.0, [place] % (Auto) 5.4, Eos % (Auto) 0.1, Baso % (Auto) 0.1, Neut # (Auto) 10.7 H, Lymph # (Auto) 1.3, [place] # (Auto) 0.7, Eos # (Auto) 0.0, Baso # (Auto) 0.0 04/21/19 05:50: Sodium 146 H, Potassium 3.3 L, Chloride 110 H, Carbon Dioxide 27, Anion Gap 12.3, BUN 29 H, Creatinine 0.77, Estimated Creat Clear 59, Estimated GFR 75, Est GFR ( Amer) 91, Glucose 91, Calcium 8.1 L, Magnesium 2.2, Total Bilirubin 0.6, AST 15 D, ALT 19 D, Alkaline Phosphatase 52, Total Protein 5.3 L D, Albumin 2.8 L D, Globulin 2.5, Albumin/Globulin Ratio 1.1 I & O for Last 24 hours: Intake & Output 04/18/19 04/19/19 04/20/19 04/21/19 11:59 11:59 11:59 11:59 Intake Total 3470 / 3470 4128 / 4128 Output Total 550 / 550 3525 / 3525 Balance 2920 / 2920 603 / 603 Weight 141 lb 8 oz 146 lb 3.016 oz Narrative: In general patient is well-nourished and in no acute distress. She does have some mandibular ecchymoses from recent oral surgery. 12 [place] nasogastric tube in the nare functioning intermittently. Chest reveals diminished breath sounds in the bases. Her abdomen is soft and nontender and nondistended at this time. Results - Labs 04/21/19 05:50 04/21/19 05:50 Laboratory Results - last 24 hr 04/20/19 18:55: Sodium 144, Potassium 4.0 D, Chloride 106, Carbon Dioxide 29, Anion Gap 13.0, BUN 29 H, Creatinine 0.82 D, Estimated Creat Clear 57, Estimated GFR 70, Est GFR ( Amer) 85 D, Glucose 112 H D, Calcium 8.6, Magnesium 2.3 H 04/21/19 05:50: WBC 12.7 H, RBC 3.80 L, Hgb 11.7 L, Hct 36.1 L, MCV 95.0, MCH 3 0.8, MCHC 32.4, RDW 13.7, Plt Count 246, MPV 8.5, Neut % (Auto) 84.5 H, Lymph % (Auto) 10.0, [place] % (Auto) 5.4, Eos % (Auto) 0.1, Baso % (Auto) 0.1, Neut # (Auto) 10.7 H, Lymph # (Auto) 1.3, [place] # (Auto) 0.7, Eos # (Auto) 0.0, Baso # (Auto) 0.0 04/21/19 05:50: Sodium 146 H, Potassium 3.3 L, Chloride 110 H, Carbon Dioxide 27, Anion Gap 12.3, BUN 29 H, Creatinine 0.77, Estimated Creat Clear 59, Estimated GFR 75, Est GFR ( Amer) 91, Glucose 91, Calcium 8.1 L, Magnesium 2.2, Total Bilirubin 0.6, AST 15 D, ALT 19 D, Alkaline Phosphatase 52, Total Protein 5.3 L D, Albumin 2.8 L D, Globulin 2.5, Albumin/Globulin Ratio 1.1 Assessment and Plan (1) Abdominal pain Current visit: Yes Status: Acute Category: Medical Code(s): R10.9 - Unspecified abdominal pain (2) LEANDRA (acute kidney injury) Current visit: Yes Status: Acute Category: Medical Code(s): N17.9 - Acute kidney failure, unspecified (3) Hypokalemia Current visit: Yes Status: Acute Category: Medical Code(s): E87.6 - Hypokalemia (4) Mandibular abscess Current visit: Yes Status: Acute Category: Medical Code(s): M27.2 - Inflammatory conditions of jaws (5) Severe sepsis with acute organ dysfunction Current visit: Yes Status: Acute Category: Medical Code(s): A41.9 - Sepsis, unspecified organism; R65.20 - Severe sepsis without septic shock (6) Emesis, persistent Current visit: Yes Status: Acute Category: Medical Code(s): R11.15 - Cyclical vomiting syndrome unrelated to migraine - Assessment and plan all Dx Assessment and Plan for all problems:: I reviewed her imaging. 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 She does have some transverse colon herniation as well. She has had significant improvement with nasogastric decompression. This does appear to be a longstanding problem. Plan will be at this time for continue n.p.o. status and nasogastric decompression. Then plan for upper GI series is a fluoroscopy study through the nasogastric tube to e valuate for resolution of the gastric outlet obstruction. Ultimately this will need repair at tertiary facility but it is possible the patient may be able to be discharged with early outpatient follow-up.
--- NOTE | 2019-04-21 10:11 | Progress Note ---
Internal Medicine - PN: Subj *Date: 04/21/19 *Time: 08:20 Interval history: Ms. White did well overnight. Significant improvement in her abdominal pain after decompression with NG placement. Put out over 3 L of stomach contents. Reports no further nausea or vomiting. Slept well. Afebrile, normotensive. Denies any bowel movements or passing of flatus. Repeat abdominal/chest x-ray performed this morning showing NG still in a good place in the body of the stomach with air bubble within the hiatal hernia. Bowel gas pattern throughout the colon visible today showing loop of bowel going through chest cavity cephalad to diaphragm. No family at bedside on exam this morning Exam Vital signs and Labs for Last 24 Hours: Temp Pulse Resp BP Pulse Ox 98.8 F 79 18 128/85 95 04/21/19 07:53 04/21/19 07:53 04/21/19 07:53 04/21/19 07:53 04/21/19 07:53 Laboratory Results - last 24 hr 04/20/19 18:55: Sodium 144, Potassium 4.0 D, Chloride 106, Carbon Dioxide 29, Anion Gap 13.0, BUN 29 H, Creatinine 0.82 D, Estimated Creat Clear 57, Estimated GFR 70, Est GFR ( Amer) 85 D, Glucose 112 H D, Calcium 8.6, Magnesium 2.3 H 04/21/19 05:50: WBC 12.7 H, RBC 3.80 L, Hgb 11.7 L, Hct 36.1 L, MCV 95.0, MCH 30.8, MCHC 32.4, RDW 13.7, Plt Count 246, MPV 8.5, Neut % (Auto) 84.5 H, Lymph % (Auto) 10.0, [place] % (Auto) 5.4, Eos % (Auto) 0.1, Baso % (Auto) 0.1, Neut # (Auto) 10.7 H, Lymph # (Auto) 1.3, [place] # (Auto) 0.7, Eos # (Auto) 0.0, Baso # (Auto) 0.0 04/21/19 05:50: Sodium 146 H, Potassium 3.3 L, Chloride 110 H, Carbon Dioxide 27, Anion Gap 12.3, BUN 29 H, Creatinine 0.77, Estimated Creat Clear 59, Estimated GFR 75, Est GFR ( Amer) 91, Glucose 91, Calcium 8.1 L, Magnesium 2.2, Total Bilirubin 0.6, AST 15 D, ALT 19 D, Alkaline Phosphatase 52, Total Protein 5.3 L D, Albumin 2.8 L D, Globulin 2.5, Albumin/Globulin Ratio 1.1 I & O for Last 24 hours: Intake & Output 04/18/19 04/19/19 04/20/19 04/21/19 23:59 23:59 23:59 23:59 Intake Total 6624 / 6624 974 / 974 Output Total 3900 / 3900 175 / 175 Balance 2724 / 2724 799 / 799 Weight 64 kg 66.31 kg - *Routine HEENT Exam Head: Present: normocephalic Eye: Present: EOMI, PERRL ENT: Present: mucous membranes moist Comments: Sutures along mandibular gumline. NG in left nare. - *Routine Neck Exam Present: supple. Absent: lymphadenopathy - *Routine Respiratory Exam Present: CTA bilaterally - *Routine Cardiovascular Exam Present: RRR, Normal S1, Normal S2. Absent: murmur Comments: Bowel sounds present in chest cavity - *Routine Abdominal Exam Present: soft. Absent: tenderness, distended Comments: Active bowel sounds in upper abdomen. Soft, nontender, no tympany on exam today - *Routine Extremities Exam Absent: cyanosis, clubbing, edema - *Routine Skin Exam Present: warm. Absent: rash - *Routine Neurological Exam Present: alert, oriented X3 Assessment and Plan (1) Abdominal pain Current visit: Yes Status: Resolved Category: Medical Code(s): R10.9 - Unspecified abdominal pain (2) LEANDRA (acute kidney injury) Current visit: Yes Status: Resolved Category: Medical Code(s): N17.9 - Acute kidney failure, unspecified (3) Hypokalemia Current visit: Yes Status: Acute Category: Medical Code(s): E87.6 - Hypokalemia (4) Mandibular abscess Current visit: Yes Status: Acute Category: Medical Code(s): M27.2 - Inflammatory conditions of jaws (5) Severe sepsis with acute organ dysfunction Current visit: Yes Status: Resolved Category: Medical Code(s): A41.9 - Sepsis, unspecified organism; R65.20 - Severe sepsis without septic shock (6) Emesis, persistent Current visit: Yes Status: Resolved Category: Medical Code(s): R11.15 - Cyclical vomiting syndrome unrelated to migraine (7) Diaphragmatic hernia Current visit: Yes Status: Chronic Qualifiers: Obstruction and gangrene presence: without obstruction or gangrene Qualified Code(s): K44.9 - Diaphragmatic hernia without obstruction or gangrene Category: Medical Code(s): K44.9 - Diaphragmatic hernia without obstruction or gangrene After further imaging and work-up yesterday, patient found to have impressive diaphragmatic hernia. Known history of hiatal hernia however imaging showed not only large portion of proximal and distal stomach including pylorus with no evidence of gastric outlet obstruction in posterior mediastinum, also a loop of colon within her mediastinum as well. Repeat imaging this morning consisting of chest x-ray showed improvement with decompression, bowel gas pattern, and decreased size. Review of images as mentioned yesterday shows longstanding presence given finding of similar appearance though less severe with no obstruction on CT chest from 2016. Surgery was consulted this morning, recommend continued NG decompression and n.p.o. status except for medications. -Additionally they recommend upper GI series as a fluoroscopy study through the nasogastric tube to evaluate for resolution of the gastric outlet obstruction. Ultimately this will need repair at tertiary facility but it is possible the patient may be able to be discharged with early outpatient follow-up. - Assessment and plan all Dx Assessment and Plan for all problems:: 63-year-old female with diaphragmatic hernia, gastric outlet obstruction, sepsis on admission, and infection in her mandible. Continue IV antibiotics. Initiate IV proton pump inhibitor. Transition to oral meds otherwise with capping of NG tube for 2 hours after medication administration. We will continue with bowel rest for the most part over the weekend and NG decompression. Recommend getting out of bed several times today walking to help with promotion of passage of gas and bowel movement. Patient overall showing significant improvement. Continue antiemetics as needed. Surgery recommendations given, appreciate their assistance with patient. Continues to require inpatient management. Imaging planned for Tuesday with further treatment pending those findings. Clinically patient is guarded, prognosis fair.
[2019-04-22 06:57] LABS: Basophils % 0.1 % (0.1-2.0); Eosinophils % 0.1 % (0.1-12.0); Hematocrit 35.4 % (37.0-47.0); Hemoglobin 11.3 g/dL (12.2-16.2); Lymphocytes # 1.5 K/mm3 (0.7-4.5); Lymphocytes % 15.1 % (10-50); Mean Platelet Volume 7.9 fl (7.4-10.4); Monocytes # 0.4 K/mm3 (0.1-1.0); Monocytes % 4.5 % (1.7-9.3); Neutrophils # 7.8 K/mm3 (1.8-7.8); Neutrophils % 80.3 % (37.0-80.0); Platelet Count 223 K/mm3 (142-424); Red Blood Count 3.77 M/mm3 (4.20-5.40); Red Cell Distribution Width 13.4 % (11.5-17.5); White Blood Count 9.8 K/mm3 (4.8-10.8)
[2019-04-22 07:12] LABS: Anion Gap 20.3 mEq/L (5-15); Calcium 8.3 mg/dL (8.5-10.1)
--- NOTE | 2019-04-22 07:19 | Progress Note ---
Internal Medicine - PN: Subj *Date: 04/22/19 *Time: 07:15 Interval history: Ms. White did well overnight. Continues to have no further nausea or vomiting. Was able to ambulate yesterday with reports feeling weak and having a sore throat. Had large bowel movement during the afternoon yesterday. Overall improved. Surgery saw patient yesterday, appreciate recommendations. Remains hemodynamically stable, afebrile. Tolerating p.o. meds. Has developed a bit of a cough but no fever, denies shortness of breath, no chest pain, syncope, headache. Exam Vital signs and Labs for Last 24 Hours: Temp Pulse Resp BP Pulse Ox 98.4 F 74 18 135/74 94 L 04/22/19 04:00 04/22/19 04:00 04/22/19 04:00 04/22/19 04:00 04/22/19 04:00 Laboratory Results - last 24 hr 04/22/19 06:22: WBC 9.8, RBC 3.77 L, Hgb 11.3 L, Hct 35.4 L, MCV 94.0, MCH 30.1, MCHC 32.0, RDW 13.4, Plt Count 223, MPV 7.9, Neut % (Auto) 80.3 H, Lymph % (Auto) 15.1, [place] % (Auto) 4.5, Eos % (Auto) 0.1, Baso % (Auto) 0.1, Neut # (Auto) 7.8, Lymph # (Auto) 1.5, [place] # (Auto) 0.4, Eos # (Auto) 0.0, Baso # (Auto) 0.0 I & O for Last 24 hours: Intake & Output 04/19/19 04/20/19 04/21/19 04/22/19 23:59 23:59 23:59 23:59 Intake Total 6624 / 6624 2558 / 2558 696 / 696 Output Total 3900 / 3900 1900 / 1900 760 / 760 Balance 2724 / 2724 658 / 658 -64 / -64 Weight 64 kg 66.31 kg 66.763 kg Microbiology Reports for the Last 24 Hours: Microbiology 04/20/19 00:19 Blood Blood Culture - Preliminary NO GROWTH AFTER 48 HOURS 04/20/19 00:19 Blood Blood Culture - Preliminary NO GROWTH AFTER 48 HOURS Narrative: - *Routine HEENT Exam Head: Present: normocephalic Eye: Present: EOMI, PERRL ENT: Present: mucous membranes moist Comments: Sutures along mandibular gumline. NG in left nare. - *Routine Neck Exam Present: supple. Absent: lymphadenopathy - *Routine Respiratory Exam Present: CTA bilaterally - *Routine Cardiovascular Exam Present: RRR, Normal S1, Normal S2. Absent: murmur Comments: Bowel sounds present in chest cavity - *Routine Abdominal Exam Present: soft, active bowel sounds throughout abdomen; no distention, tenderness, tympany - *Routine Extremities Exam Absent: cyanosis, clubbing, edema - *Routine Skin Exam Present: warm. Absent: rash - *Routine Neurological Exam Present: alert, oriented X3, no focal deficits. Assessment and Plan (1) Abdominal pain Current visit: Yes Status: Resolved Category: Medical Code(s): R10.9 - Unspecified abdominal pain (2) LEANDRA (acute kidney injury) Current visit: Yes Status: Resolved Category: Medical Code(s): N17.9 - Acute kidney failure, unspecified (3) Hypokalemia Current visit: Yes Status: Acute Category: Medical Code(s): E87.6 - Hypokalemia (4) Mandibular abscess Current visit: Yes Status: Acute Category: Medical Code(s): M27.2 - Inflammatory conditions of jaws (5) Severe sepsis with acute organ dysfunction Current visit: Yes Status: Resolved Category: Medical Code(s): A41.9 - Sepsis, unspecified organism; R65.20 - Severe sepsis without septic shock (6) Emesis, persistent Current visit: Yes Status: Resolved Category: Medical Code(s): R11.15 - Cyclical vomiting syndrome unrelated to migraine (7) Diaphragmatic hernia Current visit: Yes Status: Chronic Qualifiers: Obstruction and gangrene presence: without obstruction or gangrene Qualified Code(s): K44.9 - Diaphragmatic hernia without obstruction or gangrene Category: Medical Code(s): K44.9 - Diaphragmatic hernia without obstruction or gangrene - Assessment and plan all Dx Assessment and Plan for all problems:: Continues to require inpatient management for her bowel obstruction. Appears to be doing better after decompression of her stomach. Promising finding having bowel movement and passing gas overnight. Surgery continues to follow along. Will slowly initiate diet today and fluid restrict to 1.5 L. Start with clear liquid diet throughout the day with no red dyes, and no carbonated beverages. We will additionally add protein supplement at lunch and dinner if tolerates clears this morning. If does well over the next 24 hours, plan for upper GI with anticipated discharge tomorrow and planned outpatient close follow-up for discussion of surgical intervention/action of hernia. full code
--- NOTE | 2019-04-22 08:28 | Progress Note ---
Subjective Patient reports: feels better Narrative: Had bowel movement. Exam Vital signs and Labs for Last 24 Hours: Temp Pulse Resp BP Pulse Ox 98.5 F 71 18 149/85 H 97 04/22/19 07:34 04/22/19 07:34 04/22/19 07:34 04/22/19 07:34 04/22/19 07:34 Laboratory Results - last 24 hr 04/22/19 06:22: WBC 9.8, RBC 3.77 L, Hgb 11.3 L, Hct 35.4 L, MCV 94.0, MCH 30.1, MCHC 32.0, RDW 13.4, Plt Count 223, MPV 7.9, Neut % (Auto) 80.3 H, Lymph % (Auto) 15.1, [place] % (Auto) 4.5, Eos % (Auto) 0.1, Baso % (Auto) 0.1, Neut # (Auto) 7.8, Lymph # (Auto) 1.5, [place] # (Auto) 0.4, Eos # (Auto) 0.0, Baso # (Auto) 0.0 04/22/19 06:22: Sodium 148 H, Potassium 3.3 L, Chloride 109 H, Carbon Dioxide 22, Anion Gap 20.3 H, BUN 30 H, Creatinine 0.72, Estimated Creat Clear 59, Estimated GFR 81, Est GFR ( Amer) 98, Glucose 65 L, Calcium 8.3 L, Magnesium 2.0 I & O for Last 24 hours: Intake & Output 04/19/19 04/20/19 04/21/19 04/22/19 11:59 11:59 11:59 11:59 Intake Total 3470 / 3470 4128 / 4128 2340 / 2340 Output Total 550 / 550 3925 / 3925 2285 / 2285 Balance 2920 / 2920 203 / 203 55 / 55 Weight 141 lb 8 oz 146 lb 3.016 oz 147 lb 3 oz Microbiology Reports for the Last 24 Hours: Microbiology 04/20/19 00:19 Blood Blood Culture - Preliminary NO GROWTH AFTER 48 HOURS 04/20/19 00:19 Blood Blood Culture - Preliminary NO GROWTH AFTER 48 HOURS - *Routine Abdominal Exam Present: soft Progress Note: A&P (1) Abdominal pain Status: Resolved Current Visit: Yes (2) LEANDRA (acute kidney injury) Status: Resolved Current Visit: Yes (3) Hypokalemia Status: Acute Current Visit: Yes (4) Mandibular abscess Status: Acute Current Visit: Yes (5) Severe sepsis with acute organ dysfunction Status: Resolved Current Visit: Yes (6) Emesis, persistent Status: Resolved Current Visit: Yes (7) Diaphragmatic hernia Status: Chronic Current Visit: Yes Assessment and Plan for All Diagnoses:: May have some clears today with NG clamped. Plan UGI tomorrow. If Gastric Outlet obstruction resolved may be able to remove NG and manage as outpatient. However, if she still has obstruction may require transfer.
[2019-04-23 06:41] LABS: Calcium 7.5 mg/dL (8.5-10.1)
--- NOTE | 2019-04-23 08:17 | Progress Note ---
Subjective Narrative: Patient without GI complaints. Only complaint is sore throat from NG tube. Exam Vital signs and Labs for Last 24 Hours: Temp Pulse Resp BP Pulse Ox 98.6 F 67 18 138/81 94 L 04/23/19 08:00 04/23/19 08:00 04/23/19 08:00 04/23/19 08:00 04/23/19 08:00 Laboratory Results - last 24 hr 04/23/19 06:07: Sodium 139, Potassium 3.0 L, Chloride 105, Carbon Dioxide 23, Anion Gap 14.0, BUN 13 D, Creatinine 0.62, Estimated Creat Clear 58, Estimated GFR 97, Est GFR ( Amer) 117, Glucose 86 D, Calcium 7.5 L I & O for Last 24 hours: Intake & Output 04/20/19 04/21/19 04/22/19 04/23/19 11:59 11:59 11:59 11:59 Intake Total 3470 / 3470 4128 / 4128 2520 / 2520 2012 Output Total 550 / 550 3925 / 3925 2285 / 2285 950 / 950 Balance 2920 / 2920 203 / 203 235 / 235 1063 / 1063 Weight 141 lb 8 oz 146 lb 3.016 oz 147 lb 3 oz 145 lb 4 oz - *Routine Abdominal Exam Present: soft Progress Note: A&P (1) Abdominal pain Status: Resolved Current Visit: Yes (2) LEANDRA (acute kidney injury) Status: Resolved Current Visit: Yes (3) Hypokalemia Status: Acute Current Visit: Yes (4) Mandibular abscess Status: Acute Current Visit: Yes (5) Severe sepsis with acute organ dysfunction Status: Resolved Current Visit: Yes (6) Emesis, persistent Status: Resolved Current Visit: Yes (7) Diaphragmatic hernia Status: Chronic Current Visit: Yes Assessment and Plan for All Diagnoses:: Upper GI today. If no evidence of gastric outlet obstruction may be able to DC NG tube.
--- NOTE | 2019-04-23 08:36 | Progress Note ---
Internal Medicine - PN: Subj *Date: 04/23/19 *Time: 08:34 Interval history: Overall patient feels better, NG tube in place but is not draining any significant amounts. Patient has had no vomiting or diarrhea. No fevers. Exam Vital signs and Labs for Last 24 Hours: Temp Pulse Resp BP Pulse Ox 98.6 F 67 18 138/81 94 L 04/23/19 08:00 04/23/19 08:00 04/23/19 08:00 04/23/19 08:00 04/23/19 08:00 Laboratory Results - last 24 hr 04/23/19 06:07: Sodium 139, Potassium 3.0 L, Chloride 105, Carbon Dioxide 23, Anion Gap 14.0, BUN 13 D, Creatinine 0.62, Estimated Creat Clear 58, Estimated GFR 97, Est GFR ( Amer) 117, Glucose 86 D, Calcium 7.5 L I & O for Last 24 hours: Intake & Output 04/20/19 04/21/19 04/22/19 04/23/19 11:59 11:59 11:59 11:59 Intake Total 3470 / 3470 4128 / 4128 2520 / 2520 2012 Output Total 550 / 550 3925 / 3925 2285 / 2285 950 / 950 Balance 2920 / 2920 203 / 203 235 / 235 1063 / 1063 Weight 141 lb 8 oz 146 lb 3.016 oz 147 lb 3 oz 145 lb 4 oz Narrative: NG tube appears to be in good position. Patient is alert, pleasant. Bruising around mandible from recent dental procedure. Heart rate regular. No murmurs. Lungs are clear and well-expanded. Abdomen is soft and nontender. Neurologic exam nonfocal. No edema or clubbing in her extremities. Assessment and Plan (1) Abdominal pain Current visit: Yes Status: Resolved Category: Medical Code(s): R10.9 - Unspecified abdominal pain (2) LEANDRA (acute kidney injury) Current visit: Yes Status: Resolved Category: Medical Code(s): N17.9 - Acute kidney failure, unspecified (3) Hypokalemia Current visit: Yes Status: Acute Category: Medical Code(s): E87.6 - Hypokalemia (4) Mandibular abscess Current visit: Yes Status: Acute Category: Medical Code(s): M27.2 - Inflammatory conditions of jaws (5) Severe sepsis with acute organ dysfunction Current visit: Yes Status: Resolved Category: Medical Code(s): A41.9 - Sepsis, unspecified organism; R65.20 - Severe sepsis without septic shock (6) Emesis, persistent Current visit: Yes Status: Resolved Category: Medical Code(s): R11.15 - Cyclical vomiting syndrome unrelated to migraine (7) Diaphragmatic hernia Current visit: Yes Status: Chronic Qualifiers: Obstruction and gangrene presence: without obstruction or gangrene Qualified Code(s): K44.9 - Diaphragmatic hernia without obstruction or gangrene Category: Medical Code(s): K44.9 - Diaphragmatic hernia without obstruction or gangrene - Assessment and plan all Dx Assessment and Plan for all problems:: Replace potassium and calcium today. Upper GI today. If tolerates this well restart clear liquids and advance to full liquids. Consider discharge tomorrow if able to tolerate full liquids for outpatient referral to GI specialty surgery.
--- NOTE | 2019-04-23 12:05 | Progress Note ---
Internal Medicine - PN: Subj *Date: 04/23/19 *Time: 12:04 Exam Vital signs and Labs for Last 24 Hours: Temp Pulse Resp BP Pulse Ox 98.6 F 67 18 138/81 94 L 04/23/19 08:00 04/23/19 08:00 04/23/19 08:00 04/23/19 08:00 04/23/19 08:00 Laboratory Results - last 24 hr 04/23/19 06:07: Sodium 139, Potassium 3.0 L, Chloride 105, Carbon Dioxide 23, Anion Gap 14.0, BUN 13 D, Creatinine 0.62, Estimated Creat Clear 58, Estimated GFR 97, Est GFR ( Amer) 117, Glucose 86 D, Calcium 7.5 L I & O for Last 24 hours: Intake & Output 04/20/19 04/21/19 04/22/19 04/23/19 23:59 23:59 23:59 23:59 Intake Total 6624 / 6624 2558 / 2558 2356 / 2356 593 / 593 Output Total 3900 / 3900 1900 / 1900 1260 / 1660 650 / 650 Balance 2724 / 2724 658 / 658 1096 / 696 -57 / -57 Weight 64 kg 66.31 kg 66.763 kg 65.884 kg Assessment and Plan (1) Abdominal pain Current visit: Yes Status: Resolved Category: Medical Code(s): R10.9 - Unspecified abdominal pain (2) LEANDRA (acute kidney injury) Current visit: Yes Status: Resolved Category: Medical Code(s): N17.9 - Acute kidney failure, unspecified (3) Hypokalemia Current visit: Yes Status: Acute Category: Medical Code(s): E87.6 - Hypokalemia (4) Mandibular abscess Current visit: Yes Status: Acute Category: Medical Code(s): M27.2 - Inflammatory conditions of jaws (5) Severe sepsis with acute organ dysfunction Current visit: Yes Status: Resolved Category: Medical Code(s): A41.9 - Sepsis, unspecified organism; R65.20 - Severe sepsis without septic shock (6) Emesis, persistent Current visit: Yes Status: Resolved Category: Medical Code(s): R11.15 - Cyclical vomiting syndrome unrelated to migraine (7) Diaphragmatic hernia Current visit: Yes Status: Chronic Qualifiers: Obstruction and gangrene presence: without obstruction or gangrene Qualified Code(s): K44.9 - Diaphragmatic hernia without obstruction or gangrene Category: Medical Code(s): K44.9 - Diaphragmatic hernia without obstruction or gangrene The patient's infection will respond to the chosen ABx?: Yes Is the patient receiving the right drug, dose, and route?: Yes Could a more targeted ABx be ordered?: No (WBC WNL, NO GROWTH IN CULTURES.)
[2019-04-24 06:31] LABS: Anion Gap 14.1 mEq/L (5-15); Calcium 7.6 mg/dL (8.5-10.1)
[2019-04-24 06:33] LABS: Basophils % 0.1 % (0.1-2.0); Eosinophils # 0.1 K/mm3 (0.0-0.4); Eosinophils % 1.6 % (0.1-12.0); Hematocrit 35.7 % (37.0-47.0); Hemoglobin 11.9 g/dL (12.2-16.2); Lymphocytes # 1.2 K/mm3 (0.7-4.5); Lymphocytes % 13.9 % (10-50); Mean Corpuscular HGB Conc 33.2 g/dL (31.8-35.4); Mean Platelet Volume 8.2 fl (7.4-10.4); Monocytes # 0.4 K/mm3 (0.1-1.0); Monocytes % 4.7 % (1.7-9.3); Neutrophils # 7.1 K/mm3 (1.8-7.8); Neutrophils % 79.8 % (37.0-80.0); Platelet Count 221 K/mm3 (142-424); Red Blood Count 3.89 M/mm3 (4.20-5.40); Red Cell Distribution Width 13.3 % (11.5-17.5)
--- NOTE | 2019-04-24 06:50 | Progress Note ---
Subjective Narrative: Patient is without complaints. Her NG tube has been to gravity. Her upper GI series reveals "relative" gastric outlet obstruction secondary to extremely large hiatal hernia but contrast does pass into the small bowel, albeit somewhat delayed. Exam Vital signs and Labs for Last 24 Hours: Temp Pulse Resp BP Pulse Ox 98.7 F 75 18 160/92 H 90 L 04/24/19 04:00 04/24/19 04:00 04/24/19 04:00 04/24/19 04:00 04/24/19 04:00 Laboratory Results - last 24 hr 04/24/19 05:58: WBC 9.0, RBC 3.89 L, Hgb 11.9 L, Hct 35.7 L, MCV 92.0, MCH 30.6, MCHC 33.2, RDW 13.3, Plt Count 221, MPV 8.2, Neut % (Auto) 79.8, Lymph % (Auto) 13.9, [place] % (Auto) 4.7, Eos % (Auto) 1.6, Baso % (Auto) 0.1, Neut # (Auto) 7.1, Lymph # (Auto) 1.2, [place] # (Auto) 0.4, Eos # (Auto) 0.1, Baso # (Auto) 0.0 04/24/19 05:58: Sodium 143, Potassium 3.1 L, Chloride 106, Carbon Dioxide 26, Anion Gap 14.1, BUN 7 D, Creatinine 0.71, Estimated Creat Clear 60, Estimated GFR 83, Est GFR ( Amer) 100, Glucose 106 D, Calcium 7.6 L I & O for Last 24 hours: Intake & Output 04/21/19 04/22/19 04/23/19 04/24/19 11:59 11:59 11:59 11:59 Intake Total 4128 / 4128 2520 / 2520 2012 / 2012 789 / 789 Output Total 3925 / 3925 2285 / 2285 950 / 950 Balance 203 / 203 235 / 235 1063 / 1063 789 / 789 Weight 146 lb 3.016 oz 147 lb 3 oz 145 lb 4 oz 148 lb 5 oz Narrative: She is in no acute distress. Her abdomen is soft Progress Note: A&P (1) Abdominal pain Status: Resolved Current Visit: Yes (2) LEANDRA (acute kidney injury) Status: Resolved Current Visit: Yes (3) Hypokalemia Status: Acute Current Visit: Yes (4) Mandibular abscess Status: Acute Current Visit: Yes (5) Severe sepsis with acute organ dysfunction Status: Resolved Current Visit: Yes (6) Emesis, persistent Status: Resolved Current Visit: Yes (7) Diaphragmatic hernia Status: Chronic Current Visit: Yes Assessment and Plan for All Diagnoses:: We will go ahead and remove NG tube. Patient may partake in limited diet with small amounts of easily digestible food. However, she will require very close follow-up for diaphragmatic hernia repair.
--- NOTE | 2019-04-24 08:02 | Discharge Summary ---
General - General Admission date:: 04/20/19 Discharge date: 04/24/19 HPI HPI: 63-year-old female who had teeth extractions performed by an oral maxillofacial surgeon earlier this week on Tuesday. She proceeded to go home after surgery, and developed nausea and vomiting the afternoon after her procedure. She was prescribed antibiotics to start due to concern for abscess versus cyst in her mandible and has been unable to tolerate them for the past 3 days. She is had very poor p.o. intake and develop signs of dehydration. Her intractable nausea and vomiting and abdominal pain are what caused her to come to the ER. Upon arrival she was found to be septic with a heart rate above 90, elevated white count, and concern for infection in her jaw. Started on broad- spectrum antibiotics and cultures were obtained. She is continued to have intractable nausea overnight and is responding poorly to Zofran. Additionally found to be hypokalemic and have acute kidney injury, suspected due to dehydration and vomiting. Started on IV fluids with some improvement this morning. On interview this morning she reports still having diffuse belly pain, vomiting being her main symptom. Complains of pain in her mandible. Has not had antibiotics since starting to take them on Tuesday and being intolerant with the emesis that afternoon. Denies fever, confusion, syncope, chest pain. No shortness of breath either. Denies blood in vomit or stool Hospital Course Hospital Course: 63-year-old female initially admitted for concern for infection/severe sepsis/nausea and vomiting. Started on IV antibiotics out of concern for symptoms being related to mandibular infection due to recent tooth extractions and possible abscess at the time. Continued to have nausea and vomiting however with abdominal distention and tenderness. Imaging was obtained showing severely distended stomach with concern for gastric outlet disorder. NG was placed with decompression and rapid improvement in her symptoms. Imaging interestingly showed very large hiatal hernia with herniation as well of part of her colon into her posterior mediastinum. She was monitored over 3 days after decompression with gradual advancement to clear liquid diet and then full liquid diet prior to discharge. Upper GI was also obtained showing large hiatal hernia but movement of contrast from stomach to proximal small intestine. Given patient's resolution of symptoms, transition oral medications, intolerance of oral fluid nutrition, discharged home with plan for close follow-up with surgery. Patient having EGD performed the day after discharge. Additionally spoke with Dr. England in regard to referral for consult to fix hiatal hernia. Plan for further management per /Dr. England. We will have close follow-up in our clinic as an outpatient to monitor p.o. tolerance and clinical stability. This time denies nausea, vomiting, chest pain, shortness of breath, belly pain. Having regular bowel movements. Passing flatus. Medically stable for discharge home Objective Vital signs: Temp Pulse Resp BP Pulse Ox 98.7 F 75 18 160/92 H 90 L 04/24/19 04:00 04/24/19 04:00 04/24/19 04:00 04/24/19 04:00 04/24/19 04:00 Narrative: - *Routine HEENT Exam Head: Present: normocephalic Eye: Present: EOMI, PERRL ENT: Present: mucous membranes moist Comments: Sutures along mandibular gumline - *Routine Neck Exam Present: supple. Absent: lymphadenopathy - *Routine Respiratory Exam Present: CTA bilaterally - *Routine Cardiovascular Exam Present: RRR, Normal S1, Normal S2. Absent: murmur Comments: Bowel sounds present in chest cavity - *Routine Abdominal Exam Present: soft, active bowel sounds throughout abdomen; no distention, tenderness, or tympany - *Routine Extremities Exam Absent: cyanosis, clubbing, edema - *Routine Skin Exam Present: warm. Absent: rash - *Routine Neurological Exam Present: alert, oriented X3, no focal deficits. Results Labs on day of discharge: Labs from last 24 hours 04/24/19 04/24/19 05:58 05:58 WBC 9.0 RBC 3.89 L Hgb 11.9 L Hct 35.7 L MCV 92.0 MCH 30.6 MCHC 33.2 RDW 13.3 Plt Count 221 MPV 8.2 Neut % (Auto) 79.8 Lymph % (Auto) 13.9 [place] % (Auto) 4.7 Eos % (Auto) 1.6 Baso % (Auto) 0.1 Neut # (Auto) 7.1 Lymph # (Auto) 1.2 [place] # (Auto) 0.4 Eos # (Auto) 0.1 Baso # (Auto) 0.0 Sodium 143 Potassium 3.1 L Chloride 106 Carbon Dioxide 26 Anion Gap 14.1 BUN 7 D Creatinine 0.71 Estimated Creat Clear 60 Estimated GFR 83 Est GFR ( Amer) 100 Glucose 106 D Calcium 7.6 L Preliminary micro results at discharge 04/20/19 00:19 Blood Culture - Preliminary Blood NO GROWTH AFTER 48 HOURS 04/20/19 00:19 Blood Culture - Preliminary Blood NO GROWTH AFTER 48 HOURS DS: Diagnosis - Discharge Diagnosis (1) Abdominal pain Status: Resolved (2) LEANDRA (acute kidney injury) Status: Resolved (3) Hypokalemia Status: Acute (4) Mandibular abscess Status: Acute (5) Severe sepsis with acute organ dysfunction Status: Resolved (6) Emesis, persistent Status: Resolved (7) Diaphragmatic hernia Status: Chronic Discharge Plan - Patient Discharge Instructions ACTIVITY: Continue current activity DIET: other (Liquid diet) Patient Instructions: Sepsis, DI for Hypokalemia, DI for Incision and Drainage of a Skin Abscess, DI for Surgical Site Infection, DI for Sepsis -- Adult, DI for Skin Abscess, Hypokalemia - Follow up Plan Follow up with: Reynaldo Eng MD [Staff Physician] - Luis Estrada MD [Staff Physician] - Disposition: Home, Self-Custodial Medications: Home Medications Medication Instructions Recorded Confirmed Type lisinopril 10 1 tab PO DAILY 90 Days #90 11/25/17 04/20/19 History mg-hydrochlorothiazide 12.5 mg tablet omeprazole 40 mg capsule,delayed 40 mg PO DAILY 30 Days #30 11/25/17 04/20/19 History release ALPRAZolam [Alprazolam Xr 0.5mg 0.5 mg PO TIDP PRN 04/20/19 04/20/19 History Tab] Escitalopram Oxalate 20 mg PO HS 04/20/19 04/20/19 History Multivitamin [Multi-Day Vitamins] 1 each PO DAILY 04/20/19 04/20/19 History Oxybutynin Chloride [Oxybutynin 5 mg PO DAILY 04/20/19 04/20/19 History Chloride ER] ondansetron HCL [Ondansetron HCl] 4 mg PO Q8HP PRN 04/20/19 04/20/19 History Amoxicillin/Potassium Clav 1 tab PO Q12H 3 Days #6 tab 04/24/19 Rx [Augmentin 875-125 Tablet] Prescriptions/Medication Reconciliation: New Amoxicillin/Potassium Clav [Augmentin 875-125 Tablet] 1 tab PO Q12H 3 Days #6 tab Continued omeprazole 40 mg capsule,delayed release 40 mg PO DAILY 30 Days #30 lisinopril 10 mg-hydrochlorothiazide 12.5 mg tablet 1 tab PO DAILY 90 Days #90 Oxybutynin Chloride [Oxybutynin Chloride ER] 5 mg PO DAILY Escitalopram Oxalate 20 mg PO HS ALPRAZolam [Alprazolam Xr 0.5mg Tab] 0.5 mg PO TIDP PRN PRN Reason: Anxiety Multivitamin [Multi-Day Vitamins] 1 each PO DAILY ondansetron HCL [Ondansetron HCl] 4 mg PO Q8HP PRN PRN Reason: Nausea And Vomiting Discontinued Dicyclomine HCl 20 mg PO ACHS Amoxicillin [Amoxicillin 500mg Cap] 500 mg PO TID - Problem Reconciliation Problems Reviewed?: Yes
== END 2019-04-24 11:50 | disposition home or self-care (01) ==
LOC: 2ND 23:59 → ER 23:59 → 2ND 04-20 02:16
PROVIDERS: ADMIT Family Medicine; ATTEND Internal Medicine Adolescent Medicine
CPT/HCPCS: 36415; 70486; 71010; 71020; 71045; 71046; 74178; 74240; 74241; 80048; 80053; 82150; 83036; 83605; 83690; 83735; 84484; 85007; 85025; 87040; 93005; 96365; 96375; 99284; G0378; J2405; J3490; Q9967

== ENCOUNTER → 2019-10-09 08:59 | Outpatient (CLI) | payer MEDICARE, SELFPAY ==
--- NOTE | 2019-10-09 09:06 | MM_ITS ---
PROCEDURE: MM DIG SCREENING MAMM BI W/CAD DIGITAL BREAST TOMOSYNTHESIS INCLUDED Patient Age:63Y CLINICAL INDICATION: Routine SCREENING mammogram. 63-year-old No hormones.. No new complaints Family history.: Maternal aunt with breast cancer. COMPARISON: DIGMAMMS MAMMOGRAM SCREEN-RAM PRESS OPERATOR N/C from 08/11/2004 DIGMAMMS MAMMOGRAM SCREEN-RAM PRESS OPERATOR N/C from 11/22/2008 [facility] DIGITAL MAMM-SCREEN BILATERAL from 03/14/2012 [facility] DIG MAMM-SCREEN [place] from 02/24/2015 [facility] MM Dig screening mamm BI w/CAD from 01/20/2018 TECHNIQUE: Standard CC and MLO images were obtained. R2 CAD reviewed. Bilateral digital breast tomosynthesis included. Additional nipple profile views right breast FINDINGS: Minimal fibroglandular elements in the retroareolar region but with generalized fatty replacement throughout the deep breast.. No dominant or suspicious mass either breast, no suspicious calcifications. Slightly generous ductal pattern retroareolar region bilaterally similar to previous studies Skin moles bilaterally noted and marked Right breast: Stable no new areas of concern but the fibroglandular elements retroareolar region are similar to studies dating back to 2008, Left breast: Stable. No new findings of concern IMPRESSION: Stable bilateral mammogram. Bilateral follow-up 1 year recommended BI-RAD Category: 1 Negative FOLLOW-UP: 1YR 1 Year Follow-up (A letter has been sent to the patient regarding results of the study.) Dictated by: Ramiro Chang MD 10/14/2019 20:39 Electronically signed by Ramiro Chang MD in [place] 10/14/2019 20:39
--- NOTE | 2019-10-09 09:07 | XR_ITS ---
PROCEDURE: XR DEXA AXIAL SKELETON CLINICAL HISTORY: POST MENOPAUSAL COMPARISON: No exams were available for comparison FINDINGS: The right hip BMD is 0.621 with a t-score of -2.1. The left hip BMD is 0.641 with a t-score of -2.5. The lumbar spine BMD is 0.722 with a t-score of -3.0. IMPRESSION: This patient is considered osteoporotic according to the World Health Organization criteria. Fracture risk is high. Treatment is advised. Based on these results of follow-up exam is recommended in 1 year Dictated by: Josh Chen MD 10/09/2019 23:14 Electronically signed by Josh Chen MD in [place] 10/10/2019 10:21
== END ==
PROVIDERS: PCP Internal Medicine Adolescent Medicine; Visit Provider Internal Medicine Adolescent Medicine
DX: Z12.31 Encounter for screening mammogram for malignant neoplasm of breast (principal); Z13.820 Encounter for screening for osteoporosis; Z78.0 Asymptomatic menopausal state
CPT/HCPCS: 77063; 77067; 77080

== ENCOUNTER → 2020-10-17 07:56 | Outpatient (CLI) | payer MEDICARE, SELFPAY ==
--- NOTE | 2020-10-17 08:23 | MM_ITS ---
PROCEDURE: MM DIG SCREENING MAMM BI W/CAD Digital Breast Tomosynthesis Included CLINICAL INDICATION: SCREENING COMPARISON: MG DMSB DIG MAMM-SCREEN JUAN FRANCISCO from 02/24/2015 MG SCBI MM Dig screening mamm BI w/CAD from 01/20/2018 MG MM DIG SCREENING MAMM BI W/CAD from 10/09/2019 TECHNIQUE: Standard CC and MLO images and 3D Tomosynthesis was obtained. R2 CAD reviewed. FINDINGS: Average fibroglandular tissue. No malignant appearing mass or malignant-appearing microcalcification. Scattered asymmetric areas of fibroglandular tissue. Stable 3 mm nodule lateral left breast. IMPRESSION: Benign findings BI-RAD Category: 2 Benign Finding FOLLOW-UP: 1 YR 1 Year Follow-up (A letter has been sent to the patient regarding results of the study.) Dictated by: Josh Chen MD 10/18/2020 10:54 Josh Chen MD in [place] 10/18/2020 10:54
--- NOTE | 2020-10-17 08:23 | XR_ITS ---
PROCEDURE: XR DEXA AXIAL SKELETON CLINICAL HISTORY: POST MENOPAUSAL COMPARISON: No exams were available for comparison FINDINGS: The right hip BMD is 0.61 with a T-score of -2.1. The left hip BMD is 0.655 with a T-score of -2.4. The lumbar spine BMD is 0.797 with a T-score of -2.3. IMPRESSION: This patient is considered osteopenic according to the World Health Organization criteria. Bone density is between 10 and 25 percent below young normal. Fracture risk is moderate. Treatment is advised. Based on these results a follow-up exam is recommended in 2 year. Dictated by: Josh Chen MD 10/17/2020 09:27 Josh Chen MD in [facility] 10/17/2020 09:27
[2020-10-17 09:01] LABS: Alanine Aminotransferase 14 U/L (12-78); Albumin/Globulin Ratio 1.7 (1.1-1.8); Alkaline Phosphatase 73 U/L (38-126); Anion Gap 10.3 mEq/L (5-15); Aspartate Amino Transferase 21 U/L (14-36); Bilirubin,Total 0.7 mg/dl (0.2-1.3); Blood Urea Nitrogen 5 mg/dl (7-17); Calcium 8.9 mg/dl (8.4-10.2); Carbon Dioxide 32 mmol/L (22.0-30.0); Chloride 102 mmol/L (98-107); Cholesterol 221 mg/dl (140-200); Estimated Glomerular Filt Rate 84 ml/min (>60); GFR (African American) 101 ML/MIN (>60); Globulin 2.4 g/dL (1.3-3.2); Glucose 84 mg/dl (74-100); HDL Cholesterol 55 mg/dl (40-60); Potassium 4.3 mmoL/L (3.5-5.1); Sodium 140 mmol/L (136-145); Total Protein,Serum 6.4 g/dl (6.3-8.2); Triglycerides 131 mg/dl (30-150); VLDL Cholesterol 26 mg/dL (0-40)
[2020-10-17 09:12] LABS: Direct LDL Cholesterol 123.61 mg/dL (100-129)
[2020-10-17 09:17] LABS: 25-OH Vitamin D, Total 38.4 ng/mL (30-100)
[2020-10-17 09:32] LABS: Thyroid Stimulating Hormone 2.57 uIU/mL (0.465-4.68)
== END ==
PROVIDERS: PCP Internal Medicine Adolescent Medicine; Visit Provider Nurse Practitioner Family
DX: Z13.820 Encounter for screening for osteoporosis (principal); Z78.0 Asymptomatic menopausal state; Z12.31 Encounter for screening mammogram for malignant neoplasm of breast; I10 Essential (primary) hypertension; E04.2 Nontoxic multinodular goiter; E55.9 Vitamin D deficiency, unspecified; M81.0 Age-related osteoporosis without current pathological fracture
CPT/HCPCS: 36415; 77063; 77067; 77080; 80053; 80061; 82306; 84443

== ENCOUNTER → 2021-12-14 12:47 | Outpatient (CLI) | payer MEDICARE, SELFPAY ==
--- NOTE | 2021-12-14 13:01 | MM_ITS ---
PROCEDURE INFORMATION: Exam: MG Bilateral Screening 3D Mammography Exam date and time: 12/14/2021 12:55 PM Age: 66 years old Clinical indication: Screening mammogram TECHNIQUE: Imaging protocol: Bilateral Screening tomosynthesis and 2D mammography including computer-aided detection (CAD) when performed. COMPARISON: 1. MG MM DIG SCREENING MAMM BI W/CAD 10/17/2020 8:38 AM 2. MG MM DIG SCREENING MAMM BI W/CAD 10/09/2019 9:32 AM 3. MG SCBI MM Dig screening mamm BI w/CAD 01/20/2018 9:31 AM 4. MG DMSB DIG MAMM-SCREEN JUAN FRANCISCO 02/24/2015 11:03 AM FINDINGS: MAMMOGRAPHY: Breast composition: There are scattered areas of fibroglandular density. Mass: None. Architectural distortion: No new or suspicious architectural distortion. Calcifications: No new or suspicious calcifications are present Asymmetric density: No new or suspicious asymmetric density is present Skin thickening: None. Axillary adenopathy: None. IMPRESSION: No mammographic evidence of malignancy. Recommend annual screening mammography unless otherwise clinically indicated. ASSESSMENT: BI-RADS category 1: Negative
== END ==
PROVIDERS: PCP Internal Medicine Adolescent Medicine; Visit Provider Nurse Practitioner Family
DX: Z12.31 Encounter for screening mammogram for malignant neoplasm of breast (principal)
CPT/HCPCS: 77063; 77067

== ENCOUNTER → 2022-01-04 09:46 | Outpatient (CLI) | payer MEDICARE, SELFPAY | PROVIDERS: PCP Nurse Practitioner Family; Visit Provider Internal Medicine | DX: Z01.818 Encounter for other preprocedural examination (principal); Z20.822 Contact with and (suspected) exposure to COVID-19; Z12.11 Encounter for screening for malignant neoplasm of colon | CPT/HCPCS: C9803; U0003; U0005 ==

== ENCOUNTER 2022-01-06 10:37 | Day surgery (SDC) | payer MEDICARE, SELFPAY ==
[2022-01-06 11:03] VITALS: BP 122/78; PULSE 66; RESP 18; TEMP 36.8; O2SAT 97; BMI 26.4
--- NOTE | 2022-01-06 11:39 | P.PN_ITS ---
PFSH PFS Medical History Anxiety Cholecystectomy planned Depression Gallbladder disease History of back pain Hypertension Sleep apnea Surgical History H/O hernia repair H/O oral surgery H/O total hysterectomy Hx of cardiac cath Family History Family/Other Family history of breast cancer Grandmother Diabetes Grandmother Diabetes Social History Smoking Status: Never smoker second hand exposure: Yes alcohol intake: never substance use type: denies use current occupational status: retired Travel in the last 8 weeks: None household members: family housing: house caffeine: Yes [facility] Anesthesia Checklist Patient Identification Patient Identification: Arm Band Structural Data Admitted From: Home Planned Operative Procedure/s: colonoscopy Consent for Planned Operative Procedure(s) Verified: Yes Verified Documents: Surgical Consent and History and Physical NPO Status Verified Time NPO: 00:00 Additional verifications Anesthesia Reactions: No Airway Assessment C-Spine Mobility Assessed: Yes TMJ Mobility Assessed: Yes Dentition: Good Dentition Neurological Assessment Level of Consciousness: Awake and Alert Anesthesia Plan Anesthesia Risk discussed: Yes Anesthesia Plan: Verified ASA Class: II Anesthesia Type: MAC
[2022-01-06 13:12] VITALS: O2SAT 97
[2022-01-06 13:36] VITALS: BP 112/71; PULSE 58; RESP 16; TEMP 36.9; O2SAT 99
--- NOTE | 2022-01-06 13:37 | P.PCN_ITS ---
Procedure: Date: 01/06/22 Patient Date of :: 1955 Procedure Performed:: Colonoscopy Indications:: The patient is a 66 year old who presents for surveillance colonoscopy for a history of colon polyps in the past Performing Provider:: Satish Humphrey MD Referring Provider:: SAGE Whitfield Sedation:: See RN records Procedure:: After placing the patient in the left lateral decubitus position, the colo noscopy was gently inserted into the rectum and under direct visualization advanced to the cecum which was identified by transillumination in the right lower quadrant, identification of the ileocecal valve, appendiceal orifice, and cecal strap. Color, texture, mucosa, and anatomy of the colon were carefully examined with the scope. Findings:: Anal canal: normal Rectum: Internal hemorrhoids Sigmoid colon: diverticlosis Descending colon: normal without polyps or inflammatory changes Splenic flexure: normal Transverse colon: normal without polyps or inflammatory changes Hepatic flexure: normal Ascending colon: normal without polyps or inflammatory changes Cecum: normal Terminal ileum: not visualized Recommendations:: Higher fiber diet Repeat colonoscopy in 5 years Complications:: none Estimated blood obtained (mL): 0
[2022-01-06 13:46] VITALS: BP 135/101; PULSE 79; RESP 16; O2SAT 99
[2022-01-06 13:56] VITALS: BP 133/85; PULSE 68; RESP 17; O2SAT 99
== END 2022-01-06 14:07 | disposition home or self-care (01) ==
PROVIDERS: PCP Internal Medicine Adolescent Medicine; Visit Provider Internal Medicine
PROC: 0DJD8ZZ Inspection of Lower Intestinal Tract, Via Natural or Artificial Opening Endoscopic (ICD-10-PCS; CPT 45378; principal; 2022-01-06 12:00)
DX: Z12.11 Encounter for screening for malignant neoplasm of colon (principal); Z86.010 Personal history of colon polyps; Z79.899 Other long term (current) drug therapy
CPT/HCPCS: G0105

== ENCOUNTER → 2022-04-14 15:59 | Outpatient (CLI) | payer MEDICARE, OTHER, SELFPAY ==
--- NOTE | 2022-04-14 16:04 | XR_ITS ---
FINAL REPORT CLINICAL HISTORY: Nausea, vomiting, reflux COMPARISON: Portable chest 04/21/2019 FINDINGS: Chest: A single view of the chest demonstrates no acute cardiopulmonary process. Abdomen: Flat and upright views of the abdomen demonstrate multiple air-filled bowel loops in a nonspecific pattern. There is dextroscoliosis of the lumbar spine. IMPRESSION: No acute disease in the chest. Multiple air-filled bowel loops in a nonspecific pattern. Reviewed, Interpreted and Dictated by Reynaldo Parsons III, MD Transcribed by Chastity López Authenticated and [facility]
== END ==
PROVIDERS: PCP Internal Medicine Adolescent Medicine; Visit Provider Internal Medicine Adolescent Medicine
DX: R11.2 Nausea with vomiting, unspecified (principal); K21.9 Gastro-esophageal reflux disease without esophagitis
CPT/HCPCS: 74021

== ENCOUNTER → 2022-12-27 08:04 | Outpatient (CLI) | payer MEDICARE, OTHER, SELFPAY ==
--- NOTE | 2022-12-27 08:07 | XR_ITS ---
FINAL REPORT TECHNIQUE: Bone densitometry calculations of the lumbar spine and left hip were obtained. CLINICAL HISTORY: POST MENOPAUSAL COMPARISON: 10/17/2020 FINDINGS: Using L1-4, the bone mineral density of the spine is 0.8 g/cm2, corresponding to T-score of -2.1. Previously measured -2.3. Using the left hip, the bone mineral density of the femoral neck is 0.7 g/cm2, corresponding to a T-score of -1.9. Previously this measured -1.7. NOTE: T-score: Standard deviation compared with peak bone mass of young adult mean. *Following the recommendations of the International Society of Bone densitometry, classification of hip BMD is based on the lower of two T-scores; total hip or femoral neck. IMPRESSION: Diminished bone mineral density of the lumbar spine and left hip consistent with osteopenia, slightly improved from prior exam. Reviewed, Interpreted and Dictated by Prisca Paz MD Transcribed by Ada Vazquez Authenticated and [facility]
--- NOTE | 2022-12-27 08:07 | MM_ITS ---
PROCEDURE INFORMATION: Exam: MG Bilateral Screening 3D Mammography Exam date and time: 12/27/2022 8:11 AM Age: 67 years old Clinical indication: Screening mammogram. TECHNIQUE: Imaging protocol: Bilateral Screening tomosynthesis and 2D mammography including computer-aided detection (CAD) when performed. COMPARISON: 1. MG MM DIG SCREENING MAMM BI W/CAD 12/14/2021 12:55 PM 2. MG MM DIG SCREENING MAMM BI W/CAD 10/17/2020 8:38 AM 3. MG MM DIG SCREENING MAMM BI W/CAD 10/09/2019 9:32 AM 4. MG SCBI MM Dig screening mamm BI w/CAD 01/20/2018 9:31 AM FINDINGS: MAMMOGRAPHY: Breast composition: There are scattered areas of fibroglandular density. Mass: None. Architectural distortion: No new or suspicious architectural distortion. Calcifications: No new or suspicious calcifications are present Asymmetric density: No new or suspicious asymmetric density is present Skin thickening: None. Axillary adenopathy: None. IMPRESSION: No mammographic evidence of malignancy. Recommend annual screening mammography unless otherwise clinically indicated. ASSESSMENT: BI-RADS category 1: Negative
== END ==
PROVIDERS: PCP Internal Medicine Adolescent Medicine; Visit Provider Nurse Practitioner Family
DX: Z12.31 Encounter for screening mammogram for malignant neoplasm of breast (principal); Z78.0 Asymptomatic menopausal state
CPT/HCPCS: 77063; 77067; 77080

== ENCOUNTER 2024-01-11 14:57 | Outpatient (CLI) | payer MEDICARE, OTHER, SELFPAY ==
--- NOTE | 2024-01-11 15:00 | XR_ITS ---
FINAL REPORT TECHNIQUE: Bone mineral density was calculated of the lumbar spine and hip. CLINICAL HISTORY: SCREENING COMPARISON: 12/27/2022 FINDINGS: Using L1-4, the bone mineral density of the spine is 0.875 g/cm2, corresponding to T-score of -1.6. Using the left hip, the bone mineral density of the femoral neck is 0.603 g/cm2, corresponding to a T-score of -2.2. NOTE: T-score: Standard deviation compared with peak bone mass of young adult mean. *Following the recommendations of the International Society of Bone densitometry, classification of hip BMD is based on the lower of two T-scores; total hip or femoral neck. IMPRESSION: Diminished bone mineral density of the lumbar spine and left hip consistent with low bone density. Reviewed, Interpreted and Dictated by Reynaldo Parsons III, MD Transcribed by Funmilayo Goode Authenticated and [facility]
--- NOTE | 2024-01-11 15:01 | MM_ITS ---
PROCEDURE INFORMATION: Exam: MG Bilateral Screening 3D Mammography Exam date and time: 01/11/2024 2:56 PM Age: 68 years old Clinical indication: Screening examination TECHNIQUE: Imaging protocol: Bilateral Screening tomosynthesis and 2D mammography including computer-aided detection (CAD) when performed. COMPARISON: 1. MG MM DIG SCREENING MAMM BI W/CAD 12/27/2022 8:11 AM 2. MG MM DIG SCREENING MAMM BI W/CAD 12/14/2021 12:55 PM FINDINGS: MAMMOGRAPHY: Breast composition: There are scattered areas of fibroglandular density. Mass: None. Architectural distortion: None. Calcifications: No suspicious calcifications. Asymmetric density: None. Skin thickening: None. Axillary adenopathy: None. IMPRESSION: No mammographic evidence of malignancy. Annual screening is recommended unless otherwise clinically indicated. ASSESSMENT: BI-RADS Category 1: Negative.
== END 2024-01-11 23:59 | disposition home or self-care (01) ==
LOC: RAD 14:57
PROVIDERS: PCP Internal Medicine Adolescent Medicine; Visit Provider Internal Medicine Adolescent Medicine
DX: Z78.0 Asymptomatic menopausal state (principal); Z12.31 Encounter for screening mammogram for malignant neoplasm of breast
CPT/HCPCS: 77063; 77067; 77080

== ENCOUNTER 2024-01-24 19:19 | Observation (INO) | payer MEDICARE, OTHER, SELFPAY ==
[2024-01-24] VITALS (9 sets, daily range): BP systolic 134–168; BP diastolic 81–107; PULSE 70–83; RESP 13–33; TEMP 36.7–36.8; O2SAT 96–99; BMI 28.3; BMI 28.6
--- NOTE | 2024-01-24 19:13 | ECG_ITS ---
APPROVED REPORT Exam: Resting ECG HR:73 bpm ECG Measurements Heart Rate 73 AXES MA 210 P 55 QRSd 98 QRS 31 QT 406 T 41 QTc 431 Conclusion SINUS RHYTHM WITH FIRST DEGREE AV BLOCK Electronically signed by : CORNELIUS DENNIS, 01/24/2024 22:34:18
--- NOTE | 2024-01-24 19:25 | CT_ITS ---
PROCEDURE INFORMATION: Exam: CTA Abdomen and Pelvis With Contrast Exam date and time: 01/24/2024 7:55 PM Age: 68 years old Clinical indication: Abdominal pain; Generalized; Additional info: Abd pain radiating up through chest through back TECHNIQUE: Imaging protocol: Computed tomographic angiography of the abdomen and pelvis with contrast. Exam focused on the arteries. 3D rendering (Not supervised by radiologist): MIP and/or 3D reconstructed images were created by the technologist. Radiation optimization: All CT scans at this facility use at least one of these dose optimization techniques: automated exposure control; mA and/or kV adjustment per patient size (includes targeted exams where dose is matched to clinical indication); or iterative reconstruction. Contrast material: ISOVUE; Contrast volume: 80 ml; Contrast route: INTRAVENOUS (IV); COMPARISON: CT ABDOMEN PELVIS WO/W CON 04/20/2019 6:05 PM FINDINGS: Diaphragm: Interval repair of large diaphragmatic hernia. Aorta: No abdominal aortic aneurysm. Celiac trunk and mesenteric arteries: No occlusion or significant stenosis. Renal arteries: No occlusion or significant stenosis. Right iliac arteries: No occlusion or significant stenosis. Left iliac arteries: No occlusion or significant stenosis. Liver: No mass. Gallbladder and biliary ducts: Prior cholecystectomy Pancreas: Unremarkable. No mass. No ductal dilation. Spleen: Unremarkable. No splenomegaly. Adrenal glands: Unremarkable. No mass. Kidneys and ureters: Unremarkable. No solid mass. No hydronephrosis. Stomach and bowel: Mild diverticulosis without diverticulitis Appendix: No evidence of appendicitis. Intraperitoneal space: Unremarkable. No free air. No significant fluid collection. Lymph nodes: No mediastinal/hilar adenopathy documented. Urinary bladder: Unremarkable. No mass. Reproductive: Previous hysterectomy Bones/joints: Degenerative disc disease is demonstrated and at level. Large anterior disc osteophytes. No acute fracture. Soft tissues: Unremarkable. IMPRESSION: 1. No visible acute intra-abdominal abnormality. No aortic dissection. 2. Normal CT angiogram abdomen and pelvis with the patient's age.
--- NOTE | 2024-01-24 19:25 | CT_ITS ---
PROCEDURE INFORMATION: Exam: CTA Chest With Contrast Exam date and time: 01/24/2024 7:55 PM Age: 68 years old Clinical indication: Pain; Chest pressure; Additional info: Abd pain radiating up through chest through back TECHNIQUE: Imaging protocol: Computed tomographic angiography of the chest with contrast. Exam focused on the arteries. 3D rendering (Not supervised by radiologist): MIP and/or 3D reconstructed images were created by the technologist. Radiation optimization: All CT scans at this facility use at least one of these dose optimization techniques: automated exposure control; mA and/or kV adjustment per patient size (includes targeted exams where dose is matched to clinical indication); or iterative reconstruction. Contrast material: ISOVUE; Contrast volume: 80 ml; Contrast route: INTRAVENOUS (IV); COMPARISON: [facility] CT CHEST W/ CONTRAST 01/13/2016 1:50 PM FINDINGS: Pulmonary arteries: No central acute pulmonary embolus. Aorta: Unremarkable. No aortic aneurysm. No aortic dissection. Lungs: Unremarkable. No consolidation. No masses. Pleural spaces: No pleural effusion or pneumothorax Heart: Mild cardiomegaly. Coronary arteries: No coronary artery calcifications. Lymph nodes: Some lymph node calcifications are present in the right hilum. Diaphragm: Since previous examination, there has been interval repair of the very large hiatal hernia. Bones/joints: Anterior disc osteophyte formation 2 and L4-L5 levels. Soft tissues: Unremarkable. Other findings: Ascending thoracic ectasia maximum 3.7 cm IMPRESSION: 1. No visible acute intrathoracic abnormality. No aortic dissection. No large central acute pulmonary embolus. 2. Ascending thoracic ectasia up to 3.7 cm.
[2024-01-24] MEDS: HYDROMORPHONE 2MG/ML SYRINGE 0.5 MG IV (19:32)
[2024-01-24] MEDS: ONDANSETRON 4MG/2ML VIAL 4 MG IV (19:32)
--- NOTE | 2024-01-24 19:41 | ED_ITS ---
Discharge Plan Disposition Patient Disposition: Admitted Prescriptions Prescriptions: No Action lisinopril-hydrochlorothiazide 10-12.5 mg tablet 1 tab PO DAILY 90 Days Qty: 90 omeprazole 40 mg capsule,delayed release(DR/EC) 20 mg PO DAILY 30 Days Qty: 30 alendronate 35 mg Tablet 35 mg PO WEEKLY cholecalciferol (vitamin D3) [Vitamin D3] 125 mcg (5,000 unit) Tablet 125 mcg PO DAILY escitalopram oxalate 20 MG tablet 20 mg PO HS alprazolam 0.5 MG tablet extended release 24 hr 0.5 mg PO TIDP PRN (Reason: Anxiety) Referrals Follow up/Referrals: Provider,Referral, MD [Primary Care Provider] - See instructions Activity Restrictions/Add. Instructions Additional Instructions/Restrictions: Call your family doctor to establish care for this visit to the emergency department and schedule follow-up within 48 hours to ensure improvement. If you have any worsening of your condition or any other concerning signs or symptoms, return to the emergency department or your primary care doctor for further evaluation. Clinical Impressions Clinical Impression: Abdominal pain, Chest pain Instructions Patient Instructions: DI for Acute Abdominal Pain Print Language Print Language: Romansh Discharge ED Provider: Allen Gilbert General Adult HPI General Chief complaint: Abdominal Pain Stated complaint: Abd pain Time Seen by Provider: 01/24/24 19:24 Mode of Arrival: Wheelchair Source of Information: Patient Limitations: No Limitations Description of Symptoms (Recalled from ER Triage Doc. by RN): pt started having lower abd pain that is sharp and stabbing in nature that comes up and radiates into in between shoulder blades, pain went away after laying down at 1300 then came back at 1800 tonight. pt is also having nasuea History of Present Illness HPI narrative: Please note that above description of symptoms, in this electronic medical record under categorization of recalled from ER triage doctor by RN are reflective of an initial nursing assessment, however, is not reflective of my full history and physical exam that was personally taken and clarified. Consequentially, this preceding description of symptoms, which may include the patient's categorized chief complaint in the EMR, do not reflect my personal clinical impression, and the ultimate description of history of present illness and patient stated complaints should be deferred to this section of the note. Unless stated otherwise or congruent with this section of the note, additional signs, symptoms, or incongruence should be interpreted as inaccurate with my clinical impression. Related Data Home Medications ?Medication ?Instructions ?Recorded ?Confirmed lisinopril 10 1 tab PO DAILY High blood pressure 11/25/17 01/06/22 mg-hydrochlorothiazide 12.5 mg 90 days ##90 tablet omeprazole 40 mg capsule,delayed 20 mg PO DAILY GERD 30 days ##30 11/25/17 01/06/22 release alprazolam 0.5 mg tablet,extended 0.5 mg PO TIDP PRN Anxiety 04/20/19 01/06/22 release 24 hr escitalopram oxalate 20 mg tablet 20 mg PO HS Depression 04/20/19 01/06/22 alendronate 35 mg tablet 35 mg PO WEEKLY BONES 01/04/22 01/06/22 cholecalciferol (vitamin D3) 125 125 mcg PO DAILY Supplement 01/04/22 01/06/22 mcg (5,000 unit) tablet (Vitamin D3) Allergies Allergy/AdvReac Type Severity Reaction Status Date / Time Sulfa (Sulfonamide Allergy Unknown Other Verified 01/04/22 11:27 Antibiotics) [SULFA (SULFONAMIDE ANTIBIOTICS)] sulfamethizole Allergy Unknown Other Verified 01/04/22 11:27 [SULFAMETHIZOLE] [facility] Disclaimer: The information contained in this section may have been updated after the patient was seen, as this information can be updated by other users. Medical History (Updated 01/24/24 @ 22:22 by Allen Gilbert MD) Depression Anxiety Hypertension Cholecystectomy planned Sleep apnea History of back pain Gallbladder disease Surgical History Hx of cardiac cath H/O hernia repair H/O oral surgery H/O total hysterectomy Family History Family/Other Family history of breast cancer Grandmother Diabetes Grandmother Diabetes Social History Smoking Status: Never smoker second hand exposure: Yes alcohol intake: never substance use type: denies use current occupational status: retired Travel in the last 8 weeks: None household members: family housing: house caffeine: Yes Other Medical History Have you received the Flu Vaccine for this season: No Have you received the Pneumonia Vaccine: Yes ROS Obtained: Yes All systems reviewed & no additional complaints except as documented Physical Exam General General appearance: alert and in distress Head Head exam: atraumatic and normocephalic Eye Eye exam: Present normal appearance, PERRL and EOMI Neck Neck exam: Present normal inspection, full ROM and trachea midline Respiratory Respiratory exam: Present normal lung sounds bilaterally; Absent respiratory distress, wheezes, stridor, accessory muscle use or prolonged expiratory phase Cardiovascular Cardiovascular exam: Present regular rate, normal rhythm, normal heart sounds and other (Pulses equal symmetric in upper and lower extremities) Abdominal Exam Abdominal exam: Present soft, tenderness and guarding; Absent distention, rebound, rigidity or pulsatile mass Abdominal tenderness: Present diffuse and severe Extremities Exam Extremities exam: Absent edema Neurological Exam Neurological exam: Present alert, oriented X3, CN II-XII intact and normal gait; Absent motor sensory deficit Skin Skin exam: Present warm and dry; Absent diaphoresis or erythema Medical Decision Making Medical Records Medical records reviewed: Yes I reviewed the patient's medical records. Screening: Per USPSTF and CDC recommendations, given the prevalence of disease in our region, it is our hospital?s policy to screen for HIV and viral Hepatitis for all patients aged 18 and over and those with ongoing risk factors. Armando Inquiry Pt receiving controlled substance: No Armando was queried for this patient: No Vital Signs: 01/24/24 19:19 01/24/24 19:30 01/24/24 20:00 Temperature 98.0 F Temperature Source Oral Pulse Rate 70 76 Pulse Rate [Right Radial] 74 Respiratory Rate 20 33 H 18 Blood Pressure 153/91 H 167/88 H Blood Pressure [Right Arm] 168/107 H Blood Pressure Mean 112 114 Blood Pressure Mean [Right Arm] 127 02 Sat by Pulse Oximetry 99 99 98 Oxygen Delivery Method Room Air Lab Data Lab Results 01/24/24 19:25: WBC 9.0, RBC 4.26, Hgb 13.8, Hct 39.9, MCV 93.7, MCH 32.5 H, MCHC 34.6, RDW 13.8, Plt Count 346, MPV 7.6, Neut % (Auto) 58.7, Lymph % (Auto) 36.3, [place] % (Auto) 4.2, Eos % (Auto) 0.3, Baso % (Auto) 0.6, Neut # (Auto) 5.3, Lymph # (Auto) 3.3, [place] # (Auto) 0.4, Eos # (Auto) 0.0, Baso # (Auto) 0.1, PT 10.9, INR 0.97, APTT 26.5, D-Dimer 1.73 H, Sodium 128 L, Potassium 3.3 L, C hloride 94 L, Carbon Dioxide 21 L, Anion Gap 16.3 H, BUN 10, Creatinine 0.80, Estimated Creat Clear 56, Estimated GFR 71, Est GFR ( Amer) 86, Glucose 184 H, Calcium 9.4, Total Bilirubin 0.7, AST 32, ALT 29, Alkaline Phosphatase 66, Troponin I < 0.01, NT-Pro-B Natriuret Pep 217 H, Total Protein 7.1, Albumin 4.4, Globulin 2.7, Albumin/Globulin Ratio 1.6, Lipase 180 01/24/24 20:13: Urine Color Yellow, Urine Appearance Clear, Urine pH 6.5, Ur Specific [place] 1.010, Urine Protein Negative, Urine Glucose (UA) Negative, Urine Ketones Negative, Urine Blood Negative, Urine Nitrate Negative, Urine Bilirubin Negative, Urine Urobilinogen 0.2, Ur Leukocyte Esterase Negative, Urine WBC Occasional, Ur Squamous Epith Cells 3-5, Urine Bacteria Trace 01/24/24 20:30: Lactate 1.0 01/24/24 19:25 01/24/24 19:25 Orders (Tests/Meds): ED MEDICATIONS Generic Name Dose Route Start Last Admin Trade Name Freq PRN Reason Stop Dose Admin Al Hydrox/Mg Hydrox/Simethicone 30 ml 01/24/24 22:29 Aluminum/Magnesium/Simethicone 30ml Udc PO 01/24/24 22:30 ONCE ONE Sodium Chloride 10 ml 01/24/24 19:52 01/24/24 19:53 Sodium Chloride 0.9% 10ml Syr (Rad Only) IV 02/23/24 19:51 10 ml NEEDED PRN Administration Maintain IV Site Discontinued Medications Generic Name Dose Route Start Last Admin Trade Name Freq PRN Reason Stop Dose Admin Hydromorphone HCl 0.5 mg 01/24/24 19:25 01/24/24 19:32 Hydromorphone 2mg/Ml Syringe IV 01/24/24 19:26 0.5 mg ONCE ONE Administration Iopamidol 80 ml 01/24/24 19:52 01/24/24 19:53 Iopamidol-370 (76%);100ml Bottle IV 01/24/24 19:53 80 ml ONCE ONE Administration Morphine Sulfate 4 mg 01/24/24 22:28 Morphine 4mg/Ml Syringe IV 01/24/24 22:29 ONCE ONE Ondansetron HCl 4 mg 01/24/24 19:25 01/24/24 19:32 Ondansetron 4mg/2ml Vial IV 01/24/24 19:26 4 mg ONCE ONE Administration Potassium Chloride 60 meq 01/24/24 22:19 01/24/24 22:29 Potassium Chloride 20meq Tab PO 01/24/24 22:20 60 meq ONCE ONE Administration Sodium Chloride 50 ml 01/24/24 19:52 01/24/24 19:53 0.9 % Sodium Chloride 50 Ml Vial IV 01/24/24 19:53 50 ml ONCE ONE Administration ORDERS Category Date Time Status CT angio abdomen pelvis Stat Cat Scan 01/24/24 19:[address] angio chest - dissection Stat Cat Scan 01/24/24 19:25 Completed POCUS Point of Care (ER Only) Stat Exams 01/24/24 19:27 Completed CBC w/Auto Diff [Complete Blood Count Auto Diff] Stat Lab 01/24/24 19:25 Completed CMP [Comprehensive Metabolic Panel] Stat Lab 01/24/24 19:25 Completed D-Dimer Stat Lab 01/24/24 19:25 Completed Lactic Acid Stat Lab 01/24/24 20:30 Completed Lipase Stat Lab 01/24/24 19:25 Completed NT Pro Brain Natriuretic Pep. Stat Lab 01/24/24 19:25 Completed PT INR [Prothrombin Time INR] Stat Lab 01/24/24 19:25 Completed PTT [Activated Partial Thrombo Time] Stat Lab 01/24/24 19:25 Completed Trop I [Troponin I] Stat Lab 01/24/24 19:25 Completed Troponin I Q3H Lab 01/24/24 22:30 Ordered Troponin I Q3H Lab 01/25/24 01:30 Ordered UA [Urinalysis and Microscopic] Stat Lab 01/24/24 20:13 Completed Medical Decision Narrative: Is a 68-year-old female history of hypertension, diaphragmatic hernia, GERD presenting with abdominal pain and chest pain. Patient states that abdominal pain started earlier this afternoon. She was doing nothing in particular. Went to bed for a nap. Woke up and pain was progressing. Initially in lower abdomen, now radiates up through her abdomen to epigastrium and through to her back. Nausea without vomiting. No fevers or chills. No neurologic deficits. No chest pain, shortness of breath, urinary symptoms, blood in her stool. Last bowel movement was yesterday and she is still passing gas. Pain is severe, 10 out of 10, constant. History was obtained via conversation with patient. On arrival, patient hemodynamically stable, alert, oriented x4, appropriate, GCS 15, moving all extremities spontaneously, pupils equal and reactive to light. Full physical exam performed and significant for incredibly uncomfortable appearing female in moderate distress secondary to pain. Rolling around in bed holding her abdomen. Intermittently having flareups of pain, visibly. Abdomen is soft, but she is diffusely tender and intermittently guarding versus having flares of pain. Nondistended, no evidence of rigidity or rebound. Appears to be out of proportion to physical exam. Cardiopulmonary exam within normal limits. No extracardiac sounds. Differential includes PUD, gastritis, enteritis, gastroenteritis, pancreatitis, SBO, colitis, diverticulitis, nephrolithiasis, UTI, cholecystitis, choledocholithiasis, appendicitis, torsion, hepatitis, aortic pathology, mesenteric ischemia, microvascular coronary artery disease, CHF, ACS, [place], coronary artery dissection, pneumothorax, PE, dissection, pericarditis, myocarditis, pneumothorax, aortic aneurysm, pneumonia, bronchitis, among others among others. Patient placed on continuous cardiac monitoring and continuous pulse ox with initial blood pressure 160/107, heart rate 74, saturation 99% on room air. Independent interpretation of EKG shows sinus rhythm 73 beats a minute. First- degree AV block with TX interval 210. QRS 98, QTc 431. No ischemic change. [place] normal. Patient was given 0.5 mg Dilaudid, Zofran for symptomatic management and correction of underlying abnormalities. Workup independently interpreted and significant for nonactionable CBC. Dimer elevated 1.7. Patient moderately hyponatremic mildly hypokalemic. This is likely due to diuretic use. Potassium repleted, patient given fluids. On independent interpretation of imaging, patient appears to have enteritis, but no acute obstruction. No evidence of mesenteric ischemia, aortic pathology or other intrathoracic or intra-abdominal abnormality otherwise. See radiology read for full review of final results. On reevaluation, patient resting a little more comfortably,and tolerating p.o. Given patient presentation, workup, history, this most likely represents acute idiopathic abdominal pain, Possibly in the setting of enteritis. I had a conversation with patient regarding home-going versus staying, states that her pain is coming back. Because of this, and no great reason for patient's pain, I feel she is appropriate to be admitted for serial abdominal exams and serial labs as well as pain and nausea control. Interactive discussion had with hospitalist, to be admitted. Because patient high risk for clinical decompensation, deemed appropriate for inpatient admission. Results were relayed to patient who voiced understanding and patient was agreeable to inpatient admission and management. Patient was admitted to the hospital for further definitive management. Building Surveyor disclaimer Much of this encounter note is an electronic marine electronics technician spoken language to printed text. Electronic marine electronics technician of the spoken language may permit errors. Although I have reviewed the note, some errors may still exist. Procedures Limited Ultrasound Indication:: Limited cardiac ultrasound Indication: Chest pain Identified cardiac views: -Cardiac parasternal long axis [-Cardiac apical four-chamber Findings: -Cardiac activity present -Gross wall motion normal -Pericardial effusion absent -Right heart strain absent Impression: -Normal cardiac ultrasound Images were saved to permanent archive The study was technically adequate CPT: 09998 This study was performed by il, and I personally interpreted all images/videos. Based on my clinical judgement, these images were adequate and did not necessitate further imaging Views:: Limited Aortic ultrasound Indication: Pain and chest pain and back pain Identified structures: The abdominal aorta was examined in both transverse and longitudinal, from the diaphragmatic hiatus to the aortic bifurcation. Findings: No evidence of dissection, thrombus, aneurysm or any other abnormality. Impression: Normal aortic ultrasound Images were saved to permanent archive The study was technically adequate CPT: 56592-60 This study was performed by il, and I personally interpreted all images/videos. Based on my clinical judgement, these images were adequate and did not necessitate further ultrasound imaging. Critical Care Critical Care Time Critical Care Time: No
[2024-01-24 19:42] LABS: Basophils # 0.1 K/mm3 (0-0.2); Basophils % 0.6 % (0.1-2.0); Eosinophils % 0.3 % (0.1-12.0); Hematocrit 39.9 % (37.0-47.0); Hemoglobin 13.8 g/dL (12.2-16.2); Lymphocytes # 3.3 K/mm3 (0.7-4.5); Lymphocytes % 36.3 % (10-50); Mean Corpuscular HGB Conc 34.6 g/dL (31.8-35.4); Mean Corpuscular Hemoglobin 32.5 pg (27.0-31.2); Mean Corpuscular Volume 93.7 fl (81-99); Mean Platelet Volume 7.6 fl (7.4-10.4); Monocytes # 0.4 K/mm3 (0.1-1.0); Monocytes % 4.2 % (1.7-9.3); Neutrophils # 5.3 K/mm3 (1.8-7.8); Neutrophils % 58.7 % (37.0-80.0); Platelet Count 346 K/mm3 (142-424); Red Blood Count 4.26 M/mm3 (4.20-5.40); Red Cell Distribution Width 13.8 % (11.5-17.5)
[2024-01-24 19:45] LABS: Albumin Level 4.4 g/dl (3.5-5.0); Chloride 94 mmol/L (98-107); Potassium 3.3 mmoL/L (3.5-5.1); Sodium 128 mmol/L (136-145)
[2024-01-24 19:47] LABS: Blood Urea Nitrogen 10 mg/dl (7-17); Creatinine Clearance Estimated 56 mL/min (50-200); Estimated Glomerular Filt Rate 71 ml/min (>60); GFR (African American) 86 ML/MIN (>60)
[2024-01-24 19:48] LABS: Alanine Aminotransferase 29 U/L (12-78); Albumin/Globulin Ratio 1.6 (1.1-1.8); Alkaline Phosphatase 66 U/L (38-126); Anion Gap 16.3 mEq/L (5-15); Aspartate Amino Transferase 32 U/L (14-36); Bilirubin,Total 0.7 mg/dl (0.2-1.3); Calcium 9.4 mg/dl (8.4-10.2); Carbon Dioxide 21 mmol/L (22.0-30.0); Globulin 2.7 g/dL (1.3-3.2); Glucose 184 mg/dl (74-100); Total Protein,Serum 7.1 g/dl (6.3-8.2)
[2024-01-24 19:49] LABS: Activated Partial Thrombo Time 26.5 seconds (22.8-30.6); INR 0.97 (0.9-1.1); Prothrombin Time 10.9 seconds (10.1-12.5)
[2024-01-24] MEDS: 0.9 % SODIUM CHLORIDE 50 ML VIAL IV (19:53)
[2024-01-24] MEDS: IOPAMIDOL-370 (76%);100ML BOTTLE 80 ML IV (19:53)
[2024-01-24] MEDS: SODIUM CHLORIDE 0.9% 10ML SYR (RAD ONLY) 10 ML IV (19:53)
--- NOTE | 2024-01-24 19:53 | HMH.ITSTN ---
GFR completion/results were overrode for the use of contrast media by the Physician on a risk vs. benefit situation with this patient.
[2024-01-24 19:57] LABS: NT Pro Brain Natriuretic Pep. 217 pg/mL (0-125)
[2024-01-24 20:00] LABS: Troponin I < 0.01 ng/ml (0.00-0.034)
[2024-01-24 20:07] LABS: D-Dimer 1.73 ug/mL (0.0-0.5)
[2024-01-24 20:15] LABS: Lipase 180 U/L (23-300)
[2024-01-24 20:36] LABS: Microscopic, Urine URINE MICROSCOPIC (MICROSCOPIC)
[2024-01-24 20:39] LABS: Appearance,Urine CLEAR (Clear); Bilirubin,Urine Negative (Negative); Blood, Urine Negative (Negative); Color,Urine YELLOW (Yellow); Glucose,Urine (UA) Negative (Negative); Ketones,Urine Negative (Negative); Leukocyte Esterase,Urine Negative (Negative); Nitrate,Urine Negative (Negative); PH,Urine 6.5 (5.0-8.5); Protein,Urine Negative (Negative); Urobilinogen,Urine 0.2 EU/dl (0.2)
[2024-01-24 20:54] LABS: Bacteria,Urine Trace /lpf; WBC,Urine Occasional #/hpf (0-3)
[2024-01-24] MEDS: POTASSIUM CHLORIDE 20MEQ TAB 60 MEQ PO (22:29)
[2024-01-24] MEDS: MORPHINE 4MG/ML SYRINGE 4 MG IV (22:33)
[2024-01-24] MEDS: SODIUM CHLORIDE 0.9% 25ML BAG 25 ML IV (22:37)
[2024-01-24] MEDS: PROMETHAZINE HCL 25MG/ML 1ML VIAL 12.5 MG IV (22:37)
[2024-01-24] MEDS: ALUMINUM/MAGNESIUM/SIMETHICONE 30ML UDC 30 ML PO (22:37)
--- NOTE | 2024-01-24 22:54 | PC.NURSE ---
CALLED REPORT TO 2ND FLOOR [facility]A AND ANSWERED ALL QUESTIONS
[2024-01-24 23:10] LABS: Troponin I < 0.01 ng/ml (0.00-0.034)
--- NOTE | 2024-01-24 23:55 | P.HP_ITS ---
History of Present Illness *Admission Date: 01/24/24 *Reason for visit:: Abdominal pain *History of present illness: This is a 68-year-old female that presents to [facility] emergency department with concerns of abdominal pain. She reports epigastric pain that radiates to her chest. She reports her discomfort has been present since earlier this afternoon. She denies associated retrosternal chest pain, palpitations or dyspnea. She describes a past history of diaphragmatic hernia repair several years ago. She characterizes the pain as burning and severe. She reports some associated nausea but no emesis. She denies diarrhea. She reports a bowel movement yesterday with effective flatus. She reports no prior history of pancreatitis. She reports her gallbladder has been removed. In the ED her labs identified a normal white blood cell count and CTA of the abdomen and pelvis identified no acute disease. [facility] Disclaimer: The information contained in this section may have been updated after the patient was seen, as this information can be updated by other users. Medical History (Updated 01/24/24 @ 23:25 by Dara Elmore RN) Depression Anxiety Hypertension Sleep apnea History of back pain Gallbladder disease Surgical History (Updated 01/24/24 @ 23:25 by Dara Elmore RN) History of cholecystectomy Hx of cardiac cath H/O hernia repair H/O oral surgery H/O total hysterectomy Family History Family/Other Family history of breast cancer Grandmother Diabetes Grandmother Diabetes Social History (Updated 01/24/24 @ 23:25 by Dara Elmore RN) Smoking Status: Never smoker second hand exposure: Yes alcohol intake: never substance use type: denies use current occupational status: retired Travel in the last 8 weeks: None household members: family housing: house caffeine: Yes Other Medical History Have you received the Flu Vaccine for this season: No Have you received the Pneumonia Vaccine: No Review of Systems Review of Systems Review of systems:: pertinent systems reviewed and negative unless documented below Meds Home Medications and Allergies Home Medications ?Medication ?Instructions ?Recorded ?Confirmed ?Type lisinopril 10 1 tab PO DAILY High blood pressure 11/25/17 01/24/24 History mg-hydrochlorothiazide 12.5 mg 90 days ##90 tablet omeprazole 40 mg capsule,delayed 20 mg PO DAILY GERD 30 days ##30 11/25/17 01/24/24 History release alprazolam 0.5 mg tablet,extended 0.5 mg PO TIDP PRN Anxiety 04/20/19 01/24/24 History release 24 hr escitalopram oxalate 20 mg tablet 20 mg PO HS Depression 04/20/19 01/24/24 History alendronate 35 mg tablet 35 mg PO WEEKLY BONES 01/04/22 01/24/24 History cholecalciferol (vitamin D3) 125 125 mcg PO DAILY Supplement 01/04/22 01/24/24 History mcg (5,000 unit) tablet (Vitamin D3) New Prescriptions to Start Prescriptions: Allergies Allergy/AdvReac Type Severity Reaction Status Date / Time Sulfa (Sulfonamide Allergy Unknown Other Verified 01/04/22 11:27 Antibiotics) [SULFA (SULFONAMIDE ANTIBIOTICS)] sulfamethizole Allergy Unknown Other Verified 01/04/22 11:27 [SULFAMETHIZOLE] Exam Data for Last 24 hours Vital signs and Labs for Last 24 Hours: Temp Pulse Resp BP Pulse Ox O2 Del Method O2 Flow Rate 98.1 F 83 18 134/81 97 Room Air 2 01/24/24 23:14 01/24/24 23:14 01/24/24 23:14 01/24/24 23:14 01/24/24 23:14 01/24/24 23:27 01/24/24 23:14 Laboratory Results - last 24 hr 01/24/24 19:25: WBC 9.0, RBC 4.26, Hgb 13.8, Hct 39.9, MCV 93.7, MCH 32.5 H, MCHC 34.6, RDW 13.8, Plt Count 346, MPV 7.6, Neut % (Auto) 58.7, Lymph % (Auto) 36.3, [place] % (Auto) 4.2, Eos % (Auto) 0.3, Baso % (Auto) 0.6, Neut # (Auto) 5.3, Lymph # (Auto) 3.3, [place] # (Auto) 0.4, Eos # (Auto) 0.0, Baso # (Auto) 0.1, PT 10.9, INR 0.97, APTT 26.5, D-Dimer 1.73 H, Sodium 128 L, Potassium 3.3 L, Chloride 94 L, Carbon Dioxide 21 L, Anion Gap 16.3 H, BUN 10, Creatinine 0.80, Estimated Creat Clear 56, Estimated GFR 71, Est GFR ( Amer) 86, Glucose 184 H, Calcium 9.4, Total Bilirubin 0.7, AST 32, ALT 29, Alkaline Phosphatase 66, Troponin I < 0.01, NT-Pro-B Natriuret Pep 217 H, Total Protein 7.1, Albumin 4.4, Globulin 2.7, Albumin/Globulin Ratio 1.6, Lipase 180 01/24/24 20:13: Urine Color Yellow, Urine Appearance Clear, Urine pH 6.5, Ur Specific [place] 1.010, Urine Protein Negative, Urine Glucose (UA) Negative, Urine Ketones Negative, Urine Blood Negative, Urine Nitrate Negative, Urine Bilirubin Negative, Urine Urobilinogen 0.2, Ur Leukocyte Esterase Negative, Urine WBC Occasional, Ur Squamous Epith Cells 3-5, Urine Bacteria Trace 01/24/24 20:30: Lactate 1.0 01/24/24 22:36: Troponin I < 0.01 I & O for Last 24 hours: Intake & Output 01/21/24 01/22/24 01/23/24 01/24/24 23:59 23:59 23:59 23:59 Weight 68.855 kg Constitutional Constitutional: no acute distress and cooperative *Routine HEENT Exam Head: Present normocephalic Eye: Absent scleral injection ENT: Present mucous membranes moist *Routine Neck Exam Neck: Present supple and trachea midline; Absent lymphadenopathy *Routine Respiratory Exam Respiratory: Present CTA bilaterally, normal respiratory effort and symmetric chest movement *Routine Cardiovascular Exam Cardiovascular: Present RRR *Routine Abdominal Exam Abdominal: Present soft, normoactive bowel sounds and tenderness; Absent distended or rebound *Routine Rectal Exam Rectal:: deferred *Routine Genitalia Exam Genitalia:: deferred *Routine Extremities Exam Extremities: Present full ROM and pulses intact; Absent edema *Routine Skin Exam Skin: Present warm; Absent rash *Routine Neurological Exam Neurological: Present alert, oriented X3, moving all extremities, vision grossly intact, hearing grossly intact and normal speech; Absent sensory deficit or motor deficit Routine Psychiatric Exam Psychiatric: Present normal affect, normal thought process, cooperative, good insight and good judgment Assessment and Plan *Assessment and plan (1) Abdominal pain: Status: Acute Qualifiers: Abdominal location: generalized Qualified Code(s): R10.84 - Generalized abdominal pain Category: Medical Code(s): R10.9 - Unspecified abdominal pain (2) Diaphragmatic hernia: Status: Chronic Qualifiers: Obstruction and gangrene presence: without obstruction or gangrene Qualified Code(s): K44.9 - Diaphragmatic hernia without obstruction or gangrene Category: Medical Code(s): K44.9 - Diaphragmatic hernia without obstruction or gangrene Plan This is a 68-year-old female who presents to [facility] emergency department with concerns of abdominal pain and describes a previous diaphragmatic hernia repair. She reports a past history of reflux as well. Problems addressed as follows: Abdominal epigastric pain History of diaphragmatic hernia repair N.p.o. Gentle IV fluid resuscitation ED labs with normal LFTs, lipase and renal function CTA A/P: Previous cholecystectomy and hysterectomy and no acute disease CTA chest: Hiatal hernia repair with no acute disease Troponin negative Antiemetic therapy Prokinetic therapy with Reglan Trending labs and inflammatory markers Electrolyte and mineral replacement therapy Pain control Parenterally administered controlled substance for comfort care Outpatient follow-up with GI for follow-up EGD
[2024-01-25] VITALS: BP 107/70; PULSE 73; RESP 16; TEMP 36.7; O2SAT 91
[2024-01-25] MEDS: METOCLOPRAMIDE HCL 10MG/2ML VIAL 10 MG IVP ×2 (00:04→08:55)
[2024-01-25] MEDS: 0.9 % SODIUM CHLORIDE 1000ML 1,000 ML 100 ML IV ×2 (01:37→11:17)
[2024-01-25 02:55] LABS: Troponin I < 0.01 ng/ml (0.00-0.034)
[2024-01-25 04:00] VITALS: BP 130/78; PULSE 66; RESP 18; TEMP 37; O2SAT 94; BMI 29.0
[2024-01-25] MEDS: HYDROCODONE/APAP 5/325 MG TABLET 1 TAB PO ×2 (04:15→08:55)
--- NOTE | 2024-01-25 06:49 | PC.NURSE ---
Pt a/o x4. Pt has requested pain medication 1x since arriving to floor for abdominal pain. See MAR. Pt tolerating RA well with sat >90%. Standby assist to BR. Son has been at bedside. Call light within reach.
[2024-01-25 07:20] LABS: Chloride 98 mmol/L (98-107); Potassium 4.3 mmoL/L (3.5-5.1); Sodium 130 mmol/L (136-145)
[2024-01-25 07:23] LABS: Anion Gap 10.3 mEq/L (5-15); Blood Urea Nitrogen 8 mg/dl (7-17); Calcium 8.4 mg/dl (8.4-10.2); Carbon Dioxide 26 mmol/L (22.0-30.0); Creatinine Clearance Estimated 58 mL/min (50-200); Estimated Glomerular Filt Rate 83 ml/min (>60); GFR (African American) 100 ML/MIN (>60); Glucose 98 mg/dl (74-100)
[2024-01-25 07:40] VITALS: BP 121/75; PULSE 68; RESP 16; TEMP 36.9; O2SAT 95
--- NOTE | 2024-01-25 07:50 | P.DS_ITS ---
General Admission date:: 01/24/24 Discharge date: 01/25/24 HPI HPI HPI: This is a 68-year-old female that presents to [facility] emergency department with concerns of abdominal pain. She reports epigastric pain that radiates to her chest. She reports her discomfort has been present since earlier this afternoon. She denies associated retrosternal chest pain, palpitations or dyspnea. She describes a past history of diaphragmatic hernia repair several years ago. She characterizes the pain as burning and severe. She reports some associated nausea but no emesis. She denies diarrhea. She reports a bowel movement yesterday with effective flatus. She reports no prior history of pancreatitis. She reports her gallbladder has been removed. In the ED her labs identified a normal white blood cell count and CTA of the abdomen and pelvis identified no acute disease. Hospital Course Hospital Course Hospital Course: This is a 68-year-old female who presents to [facility] emergency department with concerns of abdominal pain and describes a previous diaphragmatic hernia repair. She reports a past history of reflux as well. Did well overnight. Able to advance diet. Pain more or less resolved. Plan for follow-up as an outpatient with GI. Problems addressed as follows: Abdominal epigastric pain History of diaphragmatic hernia repair. Patient had acute onset of pain last night. Pain improved overnight. Workup with labs essentially normal. White count 9. Kidney function electrolytes normal. In the ED, normal LFTs and lipase. CTA A/P: Previous cholecystectomy and hysterectomy and no acute disease. CTA chest: Hiatal hernia repair with no acute disease. Troponin negative. Treated with antiemetics. By morning, pain more or less resolved. Able to advance diet. Given her tolerance of p.o. intake and improvement with PPI and antiemetics, will discharge home with plan for close follow-up with GI. Discussed plan with patient, amenable to plan. Exam Data for Last 24 hours Vital signs and Labs for Last 24 Hours: Temp Pulse Resp BP Pulse Ox O2 Del Method O2 Flow Rate 98.4 F 68 16 121/75 95 Room Air 2 01/25/24 07:40 01/25/24 07:40 01/25/24 07:40 01/25/24 07:40 01/25/24 07:40 01/25/24 07:40 01/24/24 23:14 Laboratory Results - last 24 hr 01/24/24 19:25: WBC 9.0, RBC 4.26, Hgb 13.8, Hct 39.9, MCV 93.7, MCH 32.5 H, MCHC 34.6, RDW 13.8, Plt Count 346, MPV 7.6, Neut % (Auto) 58.7, Lymph % (Auto) 36.3, [place] % (Auto) 4.2, Eos % (Auto) 0.3, Baso % (Auto) 0.6, Neut # (Auto) 5.3, Lymph # (Auto) 3.3, [place] # (Auto) 0.4, Eos # (Auto) 0.0, Baso # (Auto) 0.1, PT 10.9, INR 0.97, APTT 26.5, D-Dimer 1.73 H, Sodium 128 L, Potassium 3.3 L, Chloride 94 L, Carbon Dioxide 21 L, Anion Gap 16.3 H, BUN 10, Creatinine 0.80, Estimated Creat Clear 56, Estimated GFR 71, Est GFR ( Amer) 86, Glucose 184 H, Calcium 9.4, Total Bilirubin 0.7, AST 32, ALT 29, Alkaline Phosphatase 66, Troponin I < 0.01, NT-Pro-B Natriuret Pep 217 H, Total Protein 7.1, Albumin 4.4, Globulin 2.7, Albumin/Globulin Ratio 1.6, Lipase 180 01/24/24 20:13: Urine Color Yellow, Urine Appearance Clear, Urine pH 6.5, Ur Specific [place] 1.010, Urine Protein Negative, Urine Glucose (UA) Negative, Urine Ketones Negative, Urine Blood Negative, Urine Nitrate Negative, Urine Bilirubin Negative, Urine Urobilinogen 0.2, Ur Leukocyte Esterase Negative, Urine WBC Occasional, Ur Squamous Epith Cells 3-5, Urine Bacteria Trace 01/24/24 20:30: Lactate 1.0 01/24/24 22:36: Troponin I < 0.01 01/25/24 02:15: Troponin I < 0.01 01/25/24 05:36: Sodium 130 L, Potassium 4.3 D, Chloride 98, Carbon Dioxide 26, Anion Gap 10.3, BUN 8, Creatinine 0.70, Estimated Creat Clear 58, Estimated GFR 83, Est GFR ( Amer) 100, Glucose 98 D, Calcium 8.4, Magnesium 2.0 I & O for Last 24 hours: Intake & Output 01/22/24 01/23/24 01/24/24 01/25/24 23:59 23:59 23:59 23:59 Output Total 0 / 0 Balance 0 / 0 Weight 68.855 kg 69.626 kg Constitutional Constitutional: no acute distress and cooperative *Routine HEENT Exam Head: Present normocephalic Eye: Present EOMI and PERRL ENT: Present mucous membranes moist *Routine Neck Exam Neck: Present supple; Absent lymphadenopathy *Routine Respiratory Exam Respiratory: Present CTA bilaterally; Absent rhonchi, wheezes or crackles *Routine Cardiovascular Exam Cardiovascular: Present RRR *Routine Abdominal Exam Abdominal: Present soft and normoactive bowel sounds; Absent tenderness or distended *Routine Rectal Exam Patient deferred: visual exam *Routine Exam Patient deferred: external exam *Routine Extremities Exam Extremities: Absent cyanosis, clubbing or edema *Routine Skin Exam Skin: Present warm; Absent rash *Routine Neurological Exam Neurological: Present alert, oriented X3 and moving all extremities; Absent altered mental status Results Data Completed and Pending Labs on day of discharge: Labs from last 24 hours 01/25/24 01/25/24 01/24/24 05:36 02:15 22:36 WBC RBC Hgb Hct MCV MCH MCHC RDW Plt Count MPV Neut % (Auto) Lymph % (Auto) [place] % (Auto) Eos % (Auto) Baso % (Auto) Neut # (Auto) Lymph # (Auto) [place] # (Auto) Eos # (Auto) Baso # (Auto) PT INR APTT D-Dimer Sodium 130 L Potassium 4.3 D Chloride 98 Carbon Dioxide 26 Anion Gap 10.3 BUN 8 Creatinine 0.70 Estimated Creat Clear 58 Estimated GFR 83 Est GFR ( Amer) 100 Glucose 98 D Lactate Calcium 8.4 Magnesium 2.0 Total Bilirubin AST ALT Alkaline Phosphatase Troponin I < 0.01 < 0.01 NT-Pro-B Natriuret Pep Total Protein Albumin Globulin Albumin/Globulin Ratio Lipase Urine Color Urine Appearance Urine pH Ur Specific [place] Urine Protein Urine Glucose (UA) Urine Ketones Urine Blood Urine Nitrate Urine Bilirubin Urine Urobilinogen Ur Leukocyte Esterase Urine WBC Ur Squamous Epith Cells Urine Bacteria 01/24/24 01/24/24 01/24/24 20:30 20:13 19:25 WBC 9.0 RBC 4.26 Hgb 13.8 Hct 39.9 MCV 93.7 MCH 32.5 H MCHC 34.6 RDW 13.8 Plt Count 346 MPV 7.6 Neut % (Auto) 58.7 Lymph % (Auto) 36.3 [place] % (Auto) 4.2 Eos % (Auto) 0.3 Baso % (Auto) 0.6 Neut # (Auto) 5.3 Lymph # (Auto) 3.3 [place] # (Auto) 0.4 Eos # (Auto) 0.0 Baso # (Auto) 0.1 PT 10.9 INR 0.97 APTT 26.5 D-Dimer 1.73 H Sodium 128 L Potassium 3.3 L Chloride 94 L Carbon Dioxide 21 L Anion Gap 16.3 H BUN 10 Creatinine 0.80 Estimated Creat Clear 56 Estimated GFR 71 Est GFR ( Amer) 86 Glucose 184 H Lactate 1.0 Calcium 9.4 Magnesium Total Bilirubin 0.7 AST 32 ALT 29 Alkaline Phosphatase 66 Troponin I < 0.01 NT-Pro-B Natriuret Pep 217 H Total Protein 7.1 Albumin 4.4 Globulin 2.7 Albumin/Globulin Ratio 1.6 Lipase 180 Urine Color Yellow Urine Appearance Clear Urine pH 6.5 Ur Specific [place] 1.010 Urine Protein Negative Urine Glucose (UA) Negative Urine Ketones Negative Urine Blood Negative Urine Nitrate Negative Urine Bilirubin Negative Urine Urobilinogen 0.2 Ur Leukocyte Esterase Negative Urine WBC Occasional Ur Squamous Epith Cells 3-5 Urine Bacteria Trace DS: Diagnosis Discharge Diagnosis (1) Abdominal pain: Status: Acute Code(s): R10.9 - Unspecified abdominal pain Qualifiers: Abdominal location: generalized Qualified Code(s): R10.84 - Generalized abdominal pain (2) Diaphragmatic hernia: Status: Chronic Code(s): K44.9 - Diaphragmatic hernia without obstruction or gangrene Qualifiers: Obstruction and gangrene presence: without obstruction or gangrene Qualified Code(s): K44.9 - Diaphragmatic hernia without obstruction or gangrene Meds Home Medications and Allergies Home Medications ?Medication ?Instructions ?Recorded ?Confirmed ?Type lisinopril 10 1 tab PO DAILY 90 days ##90 11/25/17 01/24/24 History mg-hydrochlorothiazide 12.5 mg tablet alprazolam 0.5 mg tablet,extended 0.5 mg PO TIDP PRN Anxiety 04/20/19 01/24/24 History release 24 hr escitalopram oxalate 20 mg tablet 20 mg PO HS 04/20/19 01/24/24 History alendronate 35 mg tablet 35 mg PO WEEKLY 01/04/22 01/24/24 History cholecalciferol (vitamin D3) 125 125 mcg PO DAILY Supplement 01/04/22 01/24/24 History mcg (5,000 unit) tablet (Vitamin D3) pantoprazole 40 mg tablet,delayed 40 mg PO HS 30 days #30 tabs 01/25/24 Rx release New Prescriptions to Start Prescriptions: pantoprazole Luis Estrada Allergies Allergy/AdvReac Type Severity Reaction Status Date / Time Sulfa (Sulfonamide Allergy Unknown Other Verified 01/04/22 11:27 Antibiotics) [SULFA (SULFONAMIDE ANTIBIOTICS)] sulfamethizole Allergy Unknown Other Verified 01/04/22 11:27 [SULFAMETHIZOLE] Discharge Plan Disposition Patient Disposition: Home, Self-Care Condition: Fair Follow up Plan Follow up with: Leeroy Fofana II, MD [Staff Physician] - 02/15/24 9:30 am Dipti Noguera APRN [Nurse Practitioner] - 01/30/24 2:45 pm Prescriptions/Medication Reconciliation: New pantoprazole 40 mg Tablet,Delayed Release (Dr/Ec) 40 mg PO HS 30 Days Qty: 30 0RF Continued lisinopril-hydrochlorothiazide 10-12.5 mg tablet 1 tab PO DAILY 90 Days Qty: 90 alendronate 35 mg Tablet 35 mg PO WEEKLY cholecalciferol (vitamin D3) [Vitamin D3] 125 mcg (5,000 unit) Tablet 125 mcg PO DAILY escitalopram oxalate 20 MG tablet 20 mg PO HS alprazolam 0.5 MG tablet extended release 24 hr 0.5 mg PO TIDP PRN (Reason: Anxiety) Discontinued omeprazole 40 mg capsule,delayed release(DR/EC) 20 mg PO DAILY 30 Days Qty: 30 Problem Reconciliation Problems Reviewed?: Yes Patient Discharge Instructions ACTIVITY: Continue current activity DIET: advance to your usual diet Patient Instructions: DI for Abdominal Pain-Adult Print Language: Romanian Providers Primary Care Provider: Ashley Klein Admit Provider: Luis Estrada Attending Provider: Luis Estrada
--- NOTE | 2024-01-25 08:07 | HMH.PHAINT1 ---
Pharmacy Intervention Comments: Home medications verified using list from pharmacy.
[2024-01-25] MEDS: DOCUSATE SODIUM 100 MG CAPSULE PO (08:55)
[2024-01-25] MEDS: LISINOPRIL 10MG TABLET 10 MG PO (08:55)
[2024-01-25] MEDS: hydroCHLOROthiazide 12.5MG CAPSULE 12.5 MG PO (08:55)
[2024-01-25 11:32] VITALS: BP 98/62; PULSE 68; RESP 18; TEMP 37; O2SAT 94
--- NOTE | 2024-01-26 15:30 | CARE MANAGER ---
Contacted patient related to hospital discharge. She states that she is doing well. She does have some diarrhea, but they told her to expect that. She picked up her medication and is aware of follow up appointment. MIGUEL Kirk
== END 2024-01-25 15:20 | disposition home or self-care (01) ==
LOC: ER 22:35 → 2ND 22:40
PROVIDERS: Family Medicine; Admitting Provider Internal Medicine Adolescent Medicine; Emergency Provider Emergency Medicine; PCP Nurse Practitioner Family; Visit Provider Internal Medicine Adolescent Medicine
DX: R10.84 Generalized abdominal pain (principal); K44.9 Diaphragmatic hernia without obstruction or gangrene; Z79.899 Other long term (current) drug therapy; I10 Essential (primary) hypertension
CPT/HCPCS: 36415; 71275; 74174; 80048; 80053; 81001; 83605; 83690; 83735; 83880; 84484; 85025; 85378; 85610; 85730; 93005; 99285; G0378; J1171; J1650; J2270; J2405; J2550; J2765; J7030; Q9967

== ENCOUNTER 2024-02-24 18:30 | Emergency (ER) | payer MEDICARE, OTHER, SELFPAY ==
--- NOTE | 2024-02-24 18:40 | XR_ITS ---
PROCEDURE INFORMATION: Exam: XR Right Foot Exam date and time: 02/24/2024 6:40 PM Age: 68 years old Clinical indication: Injury or trauma; Fall; Blunt trauma; Foot; Right TECHNIQUE: Imaging protocol: Radiologic exam of the right foot. Views: 3 or more views. COMPARISON: No relevant prior studies available. FINDINGS: Bones/joints: Osteopenia. No acute fracture or malalignment. Calcaneal enthesopathy. Soft tissues: Unremarkable. IMPRESSION: No acute osseous findings.
--- NOTE | 2024-02-24 18:40 | XR_ITS ---
PROCEDURE INFORMATION: Exam: XR Right Ankle Exam date and time: 02/24/2024 6:42 PM Age: 68 years old Clinical indication: Injury or trauma; Fall; Blunt trauma; Ankle; Right TECHNIQUE: Imaging protocol: Radiologic exam of the right ankle. Views: 3 or more views. COMPARISON: CR XR FOOT RT MIN 3V 02/24/2024 6:40 PM FINDINGS: Bones/joints: Osteopenia. No acute fracture or malalignment. Calcaneal enthesopathy. Soft tissues: Unremarkable. IMPRESSION: No acute osseous findings.
[2024-02-24 19:01] VITALS: BP 139/77; PULSE 75; RESP 20; TEMP 36.6; O2SAT 98; BMI 28.3
--- NOTE | 2024-02-24 19:28 | EXP.UTC ---
Discharge Plan Disposition Patient Disposition: Home, Self-Care Condition: Good Prescriptions Prescriptions: No Action lisinopril-hydrochlorothiazide 10-12.5 mg tablet 1 tab PO DAILY 90 Days Qty: 90 alendronate 35 mg Tablet 35 mg PO WEEKLY cholecalciferol (vitamin D3) [Vitamin D3] 125 mcg (5,000 unit) Tablet 125 mcg PO DAILY escitalopram oxalate 20 MG tablet 20 mg PO HS alprazolam 0.5 MG tablet extended release 24 hr 0.5 mg PO TIDP PRN (Reason: Anxiety) pantoprazole 40 mg Tablet,Delayed Release (Dr/Ec) 40 mg PO HS 30 Days Qty: 30 0RF Referrals Follow up/Referrals: Dipti Noguera APRN [Primary Care Provider] - See instructions Activity Restrictions/Add. Instructions Additional Instructions/Restrictions: *weight bearing as tolerated *RICE, Rest the extremity, Ice 15-20 minutes 3-4 times daily, Compress- wear the lonnie wrap as discussed as much as possible to help reduce swelling and pain, Elevate the extremity when at rest *Lonnie wrap and post op shoe is for support and help control swelling, use it except in the shower. Be sure that is not to tight but not to loose either *Elevate when resting? *Ibuprofen 600-800mg every 6-8 hours as needed for pain an inflammation. If need something more can take Tylenol in between doses of Ibuprofen to help Immediately follow up with your family doctor for new or worsening of symptoms, or no noticeable improvement over the next 3-5 days Clinical Impressions Clinical Impression: Contusion of foot Instructions Patient Instructions: DI for Foot Sprain, DI for Ankle Sprain Print Language Print Language: Hungarian Discharge ED Provider: Jyoti Laughlin [facility] HPI General Stated complaint: AO 02/24/24 1730 Fell injury right foot Mode of Arrival: Ambulatory Source of Information: Patient Time Seen by Provider: 02/24/24 19:28 Description of Symptoms (Recalled from Triage Doc. by RN): RIGHT FOOT PAIN FROM FALL HEENT Symptoms (Recalled from RN notes): No Resp Symptoms (Recalled from RN notes): No Skin Symptoms (Recalled from RN notes): No MS Symptoms (Recalled from RN notes): Yes Functional Status (Recalled from RN notes): HURTS TO PUT WEIGHT ON FOOT History of Present Illness Provider Complaint: Patient states that she went out to feed the dogs and slipped in the mud and hurt her right foot and ankle States most of the pain is in the foot and she has some bruising on her right great toe Denies any other injury Related Data Home Medications ?Medication ?Instructions ?Recorded ?Confirmed lisinopril 10 1 tab PO DAILY 90 days ##90 11/25/17 02/24/24 mg-hydrochlorothiazide 12.5 mg tablet alprazolam 0.5 mg tablet,extended 0.5 mg PO TIDP PRN Anxiety 04/20/19 02/24/24 release 24 hr escitalopram oxalate 20 mg tablet 20 mg PO HS 04/20/19 02/24/24 alendronate 35 mg tablet 35 mg PO WEEKLY 01/04/22 02/24/24 cholecalciferol (vitamin D3) 125 125 mcg PO DAILY Supplement 01/04/22 02/24/24 mcg (5,000 unit) tablet (Vitamin D3) Previous Rx's ?Medication ?Instructions ?Recorded pantoprazole 40 mg tablet,delayed 40 mg PO HS 30 days #30 tabs 01/25/24 release Allergies Allergy/AdvReac Type Severity Reaction Status Date / Time Sulfa (Sulfonamide Allergy Unknown Other Verified 02/15/24 09:20 Antibiotics) (SULFA (SULFONAMIDE ANTIBIOTICS)) sulfamethizole Allergy Unknown Other Verified 02/15/24 09:20 (SULFAMETHIZOLE) Worker's Comp Is this a Worker's Comp case?: No [facility] Disclaimer: The information contained in this section may have been updated after the patient was seen, as this information can be updated by other users. Medical History Depression Anxiety Hypertension Sleep apnea History of back pain Gallbladder disease Surgical History History of cholecystectomy Hx of cardiac cath PT STATES SHE HAD A HEART CATH - NO STENTS PLACED H/O hernia repair H/O oral surgery H/O total hysterectomy Family History Family/Other Family history of breast cancer Grandmother Diabetes Grandmother Diabetes Social History Smoking Status: Never smoker second hand exposure: Yes alcohol intake: never substance use type: denies use current occupational status: retired household members: family housing: house caffeine: Yes ROS Obtained: Yes All systems reviewed & no additional complaints except as documented and Yes Systems reviewed as appropriate & no additional complaints except as documented Constitutional Constitutional: Reports system reviewed and no additional complaints, except as documented and Reports as per HPI ENT Ears, Nose, Mouth, and Throat: Reports system reviewed and no additional complaints, except as documented and Reports as per HPI Cardiovascular Cardiovascular: Reports system reviewed and no additional complaints, except as documented and Reports as per HPI Respiratory Respiratory: Reports system reviewed and no additional complaints, except as documented and Reports as per HPI Gastrointestinal Gastrointestingal: Reports system reviewed and no additional complaints, except as documented and as per HPI Musculoskeletal Musculoskeletal: Reports system reviewed and no additional complaints, except as documented, Reports as per HPI and Reports other (pain and mild swelling in right foot and ankle and bruising to great toe) Physical Exam General General appearance: alert and in no apparent distress ENT ENT exam: Present mucous membranes moist Respiratory Respiratory exam: Present normal lung sounds bilaterally; Absent respiratory distress or wheezes Cardiovascular Cardiovascular exam: Present regular rate, normal rhythm and normal heart sounds Expanded Lower Extremity Exam Right: Ankle exam: Present tenderness and swelling (mild); Absent abrasion, laceration, ecchymosis or erythema Foot/toe exam: Present tenderness, swelling and ecchymosis (bruising worse at right great toe) Neurovascular/Tendon exam: Present normal capillary refill Gait: not tested/not observed Neurological Exam Neurological exam: Present alert, oriented X3 and normal gait Medical Decision Making Medical Records Screening: Per USPSTF and CDC recommendations, given the prevalence of disease in our region, it is our hospital?s policy to screen for HIV and viral Hepatitis for all patients aged 18 and over and those with ongoing risk factors. Armando Inquiry Pt receiving controlled substance: No Armando was queried for this patient: No Vital Signs: 02/24/24 19:01 Temperature 97.9 F Temperature Source Oral Pulse Rate [Left Radial] 75 Respiratory Rate 20 Blood Pressure [Left Arm] 139/77 Blood Pressure Mean [Left Arm] 97 02 Sat by Pulse Oximetry 98 Orders (Tests/Meds): ORDERS Category Date Time Status Ankle XR -Right minimum 3 Views [XR ankle RT min 3V] Exams 02/24/24 18:40 Completed Stat XR foot RT min 3V Stat Exams 02/24/24 18:40 Completed Radiology Data #1: Image(s): Ankle Image Reviewed: Yes I have reviewed radiologist's interpretation IMPRESSION: No acute osseous findings. #2: Image(s): Foot/Toes Image Reviewed: Yes I have reviewed radiologist's interpretation FINDINGS: Bones/joints: Osteopenia. No acute fracture or malalignment. Calcaneal enthesopathy. Soft tissues: Unremarkable. IMPRESSION: No acute osseous findings.
[2024-02-24 19:44] VITALS: BP 139/77; PULSE 75; RESP 20; TEMP 36.6
== END 2024-02-24 19:48 | disposition home or self-care (01) ==
PROVIDERS: Emergency Provider Nurse Practitioner; PCP Nurse Practitioner Family
DX: S90.31XA Contusion of right foot, initial encounter (principal); W19.XXXA Unspecified fall, initial encounter
CPT/HCPCS: 73610; 73630; 99213; G0381

== ENCOUNTER 2024-12-13 13:26 | Outpatient (CLI) | payer MEDICARE, SELFPAY ==
--- NOTE | 2024-12-13 | CA_ITS ---
APPROVED REPORT EXAM: Comprehensive 2D, Doppler, and color-flow Echocardiogram Jewelry Bearing Maker: Catherine Stringer CRT Ht: 5 ft 1 in Wt: 155lbs BSA: 1.69 BP: 134/78 mmHg Indications: Peripheral Edema M-Mode Dimensions LA Diam 3.14 cm (1.9-4.0) TAPSE 1.76 (<1.7) LV Diastology E Decel Time 217 (160-240 msec) E/A Ratio 0.65 MED A' 9.60 cm/s LAT A' 13.20 cm/s Aortic Valve AO Peak GR. 6.30 mmHg Mitral Valve MV E Max Lito. 64.0 (40-130 cm/s) MV A Velocity 98.0 (40-130 cm/s) E/A Ratio 0.65 MV PHT 63.0 ms Tricuspid Valve TR P. Velocity 215.00 cm/s RAP Estimate 10.00 mmHg RVSP 28.50 mmHg Left Ventricle The left ventricle is normal size. Left ventricular systolic function is normal. The left ventricular ejection fraction is within the normal range. There is increased left ventricular wall thickness. There is normal LV segmental wall motion. Transmitral Doppler flow pattern suggests impaired LV relaxation. LVEF is 55% Right Ventricle The right ventricle is mildly dilated. The right ventricular systolic function is normal. Atria The left atrium is mildly dilated. The right atrium is mildly dilated. There is no color Doppler evidence of interatrial shunt. Aortic Valve The aortic valve is mildly thickened. There is no hemodynamically significant aortic valvular stenosis. Trace aortic regurgitation is present. Mitral Valve The mitral valve is normal in structure. No evidence of mitral valve stenosis. Trace mitral regurgitation is present. Tricuspid Valve The tricuspid valve leaflets are thin and pliable. Mild tricuspid regurgitation. RVSP is 20-25 mmHg. Pulmonic Valve The pulmonary valve is grossly normal in structure. Trace pulmonic valve regurgitation is present. Great Vessels The aortic root is normal in size. IVC is normal in size and collapses >50% with inspiration. Pericardium There is no pericardial effusion. Other Information Study Quality: Technically Difficult Conclusion Normal biventricular systolic function. Mild RV dilation. Mild biatrial dilation. Mild TR. Electronically signed by : Kiara Marcos MD 12/17/2024 19:23:21
== END 2024-12-13 23:59 | disposition home or self-care (01) ==
LOC: RT 13:26
PROVIDERS: PCP Nurse Practitioner Family; Visit Provider Nurse Practitioner Family
DX: I07.1 Rheumatic tricuspid insufficiency (principal)
CPT/HCPCS: 93306

== ENCOUNTER 2025-01-28 10:26 | Outpatient (CLI) | payer MEDICARE, SELFPAY ==
--- NOTE | 2025-01-28 10:28 | MM_ITS ---
PROCEDURE INFORMATION: Exam: MG Bilateral Screening 3D Mammography Exam date and time: 01/28/2025 10:33 AM Age: 69 years old Clinical indication: Screening examination TECHNIQUE: Imaging protocol: Bilateral Screening tomosynthesis and 2D mammography including computer-aided detection (CAD) when performed. COMPARISON: 1. MG MM DIG SCREENING MAMM BI W/CAD 01/11/2024 2:56 PM 2. MG MM DIG SCREENING MAMM BI W/CAD 12/27/2022 8:11 AM FINDINGS: MAMMOGRAPHY: Breast composition: There are scattered areas of fibroglandular density. Mass: No suspicious masses. Architectural distortion: None. Calcifications: No suspicious calcifications. Asymmetric density: None. Skin thickening: None. Axillary adenopathy: None. IMPRESSION: No mammographic evidence of malignancy. Annual screening is recommended unless otherwise clinically indicated. ASSESSMENT: BI-RADS Category 1: Negative.
--- OUTSIDE RECORDS SUMMARY | 2025-01-28 10:38 | XMS_ITS | Clinical Summary ---
Author Organization Healthcare Address [address] [id number] Care Team Providers Care Bridge Crane Operator Name Role Phone Shahram Tapia MD Primary Care Provider [phone] Family History Medical History Relation Name Comments Lung cancer Brother Alzheimer's disease Father Heart attack Father Hypertension Mother Relation Name Status Comments Brother Father Mother Social History Tobacco Use Types Packs/Day Years Used Date Smoking Tobacco: Never Alcohol Use Standard Drinks/Week Comments No 0 (1 standard drink = 0.6 oz pur e alcohol) Comments Unknown Sex and Gender Information Value Date Recorded Sex Assigned at Not on file Legal Sex Female 7:40 PM EDT Gender Identity Not on file Sexual Orientation Not on file Last Filed Vital Signs Vital Sign Reading Time Taken Comments Blood Pressure 130/85 09/12/2019 10:38 AM EDT Pulse 54 09/12/2019 10:38 AM EDT Temperature 36.4 C (97.6 F) 09/12/2019 10:38 AM EDT Respiratory Rate - - Oxygen Saturation - - Inhaled Oxygen Concentration - - Weight 59.7 kg (131 lb 9.8 oz) 09/12/2019 10:38 AM EDT Height 154.9 cm (5' 1 ) 09/12/2019 10:38 AM EDT Body Mass Index 24.87 09/12/2019 10:38 AM EDT Plan of Treatment Not on file Care Teams Bridge Crane Operator Relationship Specialty Start Date End Date Shahram Tapia MD [address] [place] [id number] PCP - General 08/15/20
== END 2025-01-28 23:59 | disposition home or self-care (01) ==
LOC: RAD 10:27
PROVIDERS: PCP Nurse Practitioner Family; Visit Provider Nurse Practitioner Family
DX: Z12.31 Encounter for screening mammogram for malignant neoplasm of breast (principal); R92.323 Mammographic fibroglandular density, bilateral breasts
CPT/HCPCS: 77063; 77067